=== PATIENT | female | born 1970 | race Caucasian/White ===

== ENCOUNTER 2018-01-24 16:31 | Emergency (ER) | payer BC, SELFPAY ==
[2018-01-24 16:43] VITALS: BP 119/107; PULSE 118; RESP 16; TEMP 37; O2SAT 99
[2018-01-24 16:58] LABS: Bilirubin Large (Negative); Blood Negative (Negative); Clarity Cloudy; Glucose Negative (Negative); Ketones 40 mg/dL (Negative); Leukocyte Esterase Trace (Negative); Nitrite Positive (Negative)
--- NOTE | 2018-01-24 17:00 | DI.RPTCT_ITS ---
SYMPTOM/DIAGNOSIS: PLEURITIC CHEST PAIN, LEFT FLANK PAIN CT ANGIOGRAPHY OF THE CHEST, ABDOMEN AND PELVIS: There is no evidence of pulmonary emboli or aortic dissection. No pleural or pericardial effusions are seen. The lungs appear clear. No evidence of pneumothorax. There is a small lesion in the anterior left lobe of the liver as well as an additional lesion seen inferiorly in the right lobe, likely representing hemangioma. The findings are unchanged from June 2016. The gallbladder, spleen, pancreas, adrenals and kidneys are unremarkable. There is no bowel dilatation or inflammatory change. The bladder is empty. The uterus and ovaries are unremarkable. IMPRESSION: No acute abnormality in the chest, abdomen or pelvis.
--- NOTE | 2018-01-24 17:00 | ED.GENADUL ---
Disposition Clinical Impression: Abdominal pain, Chest pain, Nausea and vomiting, Hypokalemia, Hypomagnesemia Disposition: HOME Condition: Stable Instructions: Acute Nausea and Vomiting (ED), Hypokalemia (ED), Hypomagnesemia (ED) Additional Instructions: follow up with your primary care provider within a week and have your electrolytes rechecked if you have severe worsening pain, difficulty breathing or persistent vomit despite using zofran return to the emergency department Prescriptions: Ondansetron ODT [Zofran Odt] 4 mg PO Q8H PRN PRN #30 tabef PRN Reason: Nausea / Vomiting Medical Decision Making - Lab Data Results reviewed for labs ordered during visit: Yes - EKG Data -: EKG Interpreted by Me EKG shows normal: sinus rhythm, axis, intervals, QRS complexes Rate: normal 01/24/18 18:50 t wave inversions in inferior leads 01/24/18 18:50 - Radiology Data Radiology results: report reviewed, image reviewed - Medical Decision Making Pt here with symptoms that could be from multiple etiologies, including gastroenteritis, gastritis, hepatitis, pancreatitis, kidney stone, pyelonephritis. Also could be PE given pleuritic component, wells moderate as it is =1 diagnosis, will obtain CTA chest and abdomen and lab work, and monitor pt feels much better, labs show low K and mag and also chloride which fits with her vomit. Awaiting imagign imaging shows no acute abnormalities. She is now tolerating PO so feel she can be managed as an outpatient with antiemetics, suspect gastroenteritis vs gastritis. She was advised to f/u with pcp within a week and have labs rechecked, return precautions given - Differential Diagnosis pancreatitis, kidney stone, pyelo, pe History of Present Illness - General Chief complaint: Nausea/Vomit/Diar Stated complaint: VOMIT,PAIN ON LEFT SIDE,DEHYDRATED Time Seen by Provider: 01/24/18 16:35 Source: patient Mode of arrival: ambulatory Limitations: no limitations - History of Present Illness Initial comments: 47 yo female with hx of htn, hld, smoker, who drinks about a bottle a wine a day per pt and last drink Wednesday night, comes in with n/v and intermittent left flank and chest pain since Wednesday morning. Denies fevers, pain with exertion, notes increased pain with deep breaths. Has mild luq pain on exam. No lower extremity edema. Denies any new meds, or drug use. MD Complaint: n/v Onset/Timin -: days(s) Location: abdomen Severity scale (1-10): 6 Quality: stabbing Consistency: intermittent Improves with: none Worsens with: other (deep breaths) Associated Symptoms: chest pain Treatments Prior to Arrival: none - Related Data Cyanocobalamin/Folic Acid [Vitamin U53-Lzjky Acid Tablet] 1 each PO DAILY 11/11/15 Amlodipine Besylate 5 mg PO DAILY #90 tab-cap 01/14/17 Atorvastatin [Lipitor] 40 mg PO DAILY #90 tab-cap 01/14/17 Pantoprazole Sodium 20 mg PO DAILY #90 tab-cap 01/14/17 Fluoxetine HCl 20 mg PO DAILY #90 tab-cap 02/26/17 Magnesium Chloride [Slow-Mag] 128 mg PO DAILY #180 tab-cap 03/04/17 Nicotine [Nicotine Patch] 1 each TD DAILY #30 patch 11/18/17 Ondansetron ODT [Zofran Odt] 4 mg PO Q8H PRN PRN #30 tabef 01/24/18 Allergies Allergy/AdvReac Type Severity Reaction Status Date / Time No Known Drug Allergies Allergy Unverified 01/24/18 17:24 Review of Systems Constitutional: denies: fever Respiratory: denies: shortness of breath Cardiovascular: chest pain Gastrointestinal: abdominal pain, nausea, vomiting Genitourinary: denies: dysuria Skin: denies: rash Neurological: denies: headache Comment: All other systems reviewed and negative Past Medical History - Past Medical History Medical history: hyperlipidemia, hypertension - Social History Smoking status: current everyday smoker Alcohol use: heavy Drug use: none General Exam - General Limitations: no limitations General appearance: alert, in no apparent distress - Head Head exam: Present: atraumatic - Eye Eye exam: Present: normal apperance - ENT ENT exam: Present: mucous membranes moist - Neck Neck exam: Present: normal inspection - Respiratory Respiratory exam: Absent: respiratory distress - Cardiovascular Cardiovascular Exam: Present: regular rate - GI/Abdominal GI/Abdominal exam: Present: soft, tenderness. Absent: distended, guarding, rebound, rigid - Extremities Exam Extremities exam: Present: normal inspection, full ROM. Absent: pedal edema - Neurological Exam Neurological exam: Present: alert, oriented X3 - Psychiatric Psychiatric exam: Present: normal affect - Skin Skin exam: Present: warm Course Vital Signs - 24 hr 01/24/18 16:43 Temperature 98.6 F Pulse 118 H Respiratory 16 Rate Blood Pressure 119/107 Pulse Oximetry 99
[2018-01-24] MEDS: Normal Saline Flush 10 ML SYR IVP (17:05)
[2018-01-24] MEDS: Normal Saline 1,000 ML 1000 ML IV (17:05)
[2018-01-24 17:09] LABS: C & S Indicated? No/Sq. Contamination; Epithelial Cells Many HPF (Negative)
[2018-01-24] MEDS: Ondansetron 4 MG/2 ML VIAL IVP (17:15)
[2018-01-24 17:17] LABS: Abs Immature Grans 0.03 k/cumm (0.0-0.09); Absolute Basophil Count 0.02 k/cumm (0.0-0.2); Absolute Lymphocyte Count 1.08 k/cumm (1.2-3.4); Absolute Monocyte Count 1.07 k/cumm (0.11-0.7); Absolute Neutrophil Count 8.13 k/cumm (1.2-6.7); Basophils % 0.2; HCT 49.5 % (36.0-46.0); HGB 17.1 g/dL (12.0-15.5); Immature Grans % 0.3; Lymphocytes % 10.5; Mean Corp. HGB Concentration 34.5 g/dL (32.0-36.0); Mean Corpuscular Hemoglobin 33.4 pg (27.0-33.0); Mean Corpuscular Volume 96.7 fL (80-95); Mean Platelet Volume 9.7 fL (8.0-11.0); Monocytes % 10.4; Neutrophils % 78.6; Platelet Count 288 x1000/uL (130-400); RBC 5.12 m/cumm (4.00-5.20); RBC Distribution Width 12.9 % (11.7-14.6); White Blood Cell Count 10.33 k/cumm (4.4-10.8)
[2018-01-24] MEDS: Ketorolac 30 MG/ML VIAL 15 MG IVP (17:17)
[2018-01-24 17:32] LABS: ALT 25 U/L (12-78); AST 31 U/L (15-37); Albumin 4.3 g/dL (3.4-5.0); Alkaline Phosphatase 75 U/L (46-116); BUN 15 mg/dL (7-18); Bilirubin, Total 1.4 mg/dL (0.2-1.0); Calcium 9.8 mg/dL (8.5-10.1); Chloride 89 mmol/L (98-107); Glucose 167 mg/dL (70-100); Magnesium 1.5 mg/dL (1.8-2.4); Sodium 129 mmol/L (136-145); Total Protein 9.1 g/dL (6.4-8.2)
[2018-01-24 17:35] LABS: Potassium 2.7 mmol/L (3.5-5.1)
[2018-01-24 17:36] LABS: Troponin I < 0.02 ng/mL (0.00-0.06)
[2018-01-24] MEDS: Omnipaque 350 MG/ML 100 ML BTL IJ (18:12)
[2018-01-24 18:27] LABS: Lipase 160 U/L (73-393)
--- NOTE | 2018-01-24 18:43 | DI.VRAD_ITS ---
EXAM: CT Chest With Intravenous Contrast CLINICAL HISTORY: 47 years old, female; Pain; Abdominal pain; Flank; Left; Pleuordynia; Patient HX: Pleuritic chest pain, left flank pain TECHNIQUE: Axial computed tomography images of the chest with intravenous contrast. Coronal and sagittal reformatted images were created and reviewed. COMPARISON: No relevant prior studies available. FINDINGS: No evidence of pulmonary embolism. Normal thoracic aorta without aneurysm or dissection. No airspace consolidation, pleural effusion or pneumothorax. No fracture. IMPRESSION: No acute findings. EXAM: CT Angiography Abdomen and Pelvis With Intravenous Contrast CLINICAL HISTORY: 47 years old, female; Pain; Abdominal pain; Flank; Left; Pleuordynia; Patient HX: Pleuritic chest pain, left flank pain TECHNIQUE: Axial computed tomographic angiography images of the abdomen and pelvis with intravenous contrast. MIP reconstructed images were created and reviewed. Coronal and sagittal reformatted images were created and reviewed. COMPARISON: US - PELVIS TRANSVAG 2011-02-19 16:46 FINDINGS: There is focal fatty infiltration of the liver adjacent to the falciform ligament. There is a small probable hemangioma in right lobe of the liver posteriorly. The gallbladder is unremarkable. No biliary ductal dilatation. No hydronephrosis. Unremarkable adrenal glands, pancreas and spleen. Normal abdominal aorta. Nonvisualized appendix. No evidence of appendicitis. No evidence of bowel obstruction. There is colonic diverticulosis without diverticulitis. There is a small umbilical hernia containing fat. The wall of the urinary bladder appears thickened although the bladder is decompressed. The reproductive structures are unremarkable as visualized. No free fluid or free air. No fracture. IMPRESSION: No acute findings. Dictated and Authenticated by: Nabil Bah MD. Ordering:ZION ALVARENGA MD
[2018-01-24] MEDS: Potassium Chloride 20 MEQ TABCR 40 MEQ PO (18:47)
[2018-01-24] MEDS: Ondansetron 4 MG/2 ML VIAL (18:59)
[2018-01-24 19:00] VITALS: BP 152/110; PULSE 86; RESP 16; TEMP 36.8; O2SAT 99
[2018-01-24 19:10] VITALS: BP 152/110; PULSE 86; RESP 16; TEMP 36.8; O2SAT 99
[2018-01-24] MEDS: Ondansetron O.D.T. 4 MG TABEF PO (19:17)
== END 2018-01-24 19:25 | disposition home or self-care (01) ==
PROVIDERS: Emergency Provider Emergency Medicine; PCP Nurse Practitioner Family
DX: R07.9 Chest pain, unspecified (principal); R10.12 Left upper quadrant pain; R11.2 Nausea with vomiting, unspecified; E87.6 Hypokalemia; E83.42 Hypomagnesemia; I10 Essential (primary) hypertension
CPT/HCPCS: 36415; 71275; 74177; 80053; 83690; 93005; 96361; 96374; 96375; 96376; 99285; 81003; 81015; 83735; 84484; 85025; 93010; J1885; J2405; J3490

== ENCOUNTER → 2018-01-28 14:08 | Outpatient (CLI) | payer BC, SELFPAY ==
[2018-01-28 15:16] LABS: ALT 20 U/L (12-78); AST 20 U/L (15-37); Albumin 3.5 g/dL (3.4-5.0); Alkaline Phosphatase 61 U/L (46-116); Anion Gap 8.2 mmol/L (3-11); BUN 7 mg/dL (7-18); Bilirubin, Total 0.5 mg/dL (0.2-1.0); CO2 29.8 mmol/L (21.0-32.0); CREATININE 0.64 mg/dL (0.55-1.02); Calcium 9.2 mg/dL (8.5-10.1); Chloride 98 mmol/L (98-107); Glucose 101 mg/dL (70-100); Potassium 3.2 mmol/L (3.5-5.1); Sodium 136 mmol/L (136-145); Total Protein 6.8 g/dL (6.4-8.2)
== END ==
PROVIDERS: PCP Nurse Practitioner Family; Visit Provider Nurse Practitioner Family
DX: E87.6 Hypokalemia (principal); E83.42 Hypomagnesemia
CPT/HCPCS: 36415; 80053; 83735

== ENCOUNTER 2018-02-03 14:42 | Outpatient (CLI) | payer BC, SELFPAY ==
[2018-02-03 15:59] LABS: Potassium 4.5 mmol/L (3.5-5.1)
== END 2018-02-03 14:43 ==
PROVIDERS: PCP Nurse Practitioner Family; Visit Provider Nurse Practitioner Family
DX: E83.42 Hypomagnesemia (principal); E87.6 Hypokalemia
CPT/HCPCS: 36415; 83735; 84132

== ENCOUNTER 2019-04-13 16:07 | Outpatient (REF) | payer BC, SELFPAY ==
--- NOTE | 2019-04-13 | PAPFT_PTH ---
PATIENT: Lashanda Sams LOC: [facility] U#:[id number] AGE/SX: 48/F ROOM: RE04/13/[address]: LILIBETH Perez : 1970 BED: DIS: 04/13/2019 SPEC #: [id number] RECD: 04/13/19 17:58 STATUS: VINICIUS REShannon #: [id number] MERVIN: 04/13/19 00:[address]: Jocelin Muir DEPT: [facility] Cytology RECD BY: Malaika Pierce Tissues: 1 - CX/ENDOCX FOR PAP SMEARS Procedures: PAP THIN PREP/UVM Screening HPV DNA PROBE Comments: [id number]
== END 2019-04-13 16:27 ==
LOC: LBN 16:07
PROVIDERS: Visit Provider Nurse Practitioner Family
DX: Z12.4 Encounter for screening for malignant neoplasm of cervix (principal); Z11.51 Encounter for screening for human papillomavirus (HPV)
CPT/HCPCS: 88142; 87624

== ENCOUNTER 2019-06-12 17:07 | Emergency (ER) | payer BC, SELFPAY ==
[2019-06-12 17:18] VITALS: BP 119/80; PULSE 91; RESP 16; TEMP 36.4; O2SAT 95
--- NOTE | 2019-06-12 18:09 | DI.RAD_ITS ---
EXAM: XR FOOT RT COMPLETE INDICATION: pain, fall. COMPARISON: No exams were available for comparison TECHNIQUE: 2D digital imaging was performed. FINDINGS: A nondisplaced fracture of the distal fibula is again noted. No additional fractures are seen in the foot. A plantar calcaneal spur is noted. IMPRESSION: Distal fibular fracture. No additional fractures are identified in the foot.
--- NOTE | 2019-06-12 18:09 | W.ED.GENAD ---
Discharge Plan Disposition Patient Disposition: HOME Condition: Stable Discharge Details Chief Complaint: Orthopedic Clinical Impression: Fracture, fibula, proximal, Fracture of distal end of right fibula Primary Care Provider: Radha Ramirez ED Provider: Chelo Damon Home Meds and New Rx's Prescriptions: No Action valerian root 100 mg capsule 100 mg PO TID-QID PRNRF: 0 vitamin C22-iyaml acid 1 EACH tablet 1 ea PO DAILY RF: 0 nicotine 1 EACH patch 24 hour 1 ea Transdermal DAILY Qty: 30 RF: 2 magnesium chloride [Mag 64] 64 MG tablet,delayed release (DR/EC) 192 mg PO DAILY Qty: 270 RF: 3 amlodipine 5 mg tablet 5 mg PO DAILY Qty: 90 RF: 3 pantoprazole 20 mg tablet,delayed release (DR/EC) 20 mg PO DAILY Qty: 90 RF: 3 atorvastatin [Lipitor] 40 mg tablet 40 mg PO DAILY Qty: 90 RF: 3 fluoxetine 20 mg tablet 20 mg PO DAILY Qty: 20 RF: 0 Discharge Instructions Instructions: Leg Fracture (ED) Additional Instructions: Rest. Activities as tolerated. Elevate injury to prevent swelling. Fracture boot and crutches as discussed. Weightbearing as tolerated. Ice to the area of discomfort for 15 min. 3-5 times daily. Motrin every 8 hours with food or Tylenol every 6 hours for soreness if needed over the counter for comfort. Followup with orthopedic doctor as discussed for reevaluation Return for any worsening or concerns sooner if needed. Stand Alone Forms: Work Release Referrals: Albino Guzmán MD [ [facility] STAFF PHYSICIAN] - Medical Decision Making Very pleasant 48-year-old patient presents after injuring her right ankle 2 days ago. Has had limping gait and persistent pain since that time. On exam patient does have proximal gordon tenderness as well as primarily lateral malleolus tenderness of the right ankle. Achilles tendon is intact and nontender. Mild foot pain with palpation. Will x-ray the tib-fib as well as the ankle and foot. Patient did take ibuprofen prior to arrival. Patient is comfortable at this time. X-rays reveal both a proximal and distal metaphysis nondisplaced fractures. Spoke with Dr. Guzmán, orthopedic surgeon he recommended equalizer walking boot and crutches with weightbearing as tolerated and will follow-up in the office. HPI General Date/Time Provider Initiated Documentation: 06/12/19 17:42. HPI Narrative: This is a 48-year-old patient who presents for a ankle injury. Patient reports she twisted her ankle after slipping on ice 2 days ago. Patient reports persistent ankle pain since that time. Patient does report swelling and bruising to the right lateral ankle. Patient is complaining of gordon pain, as well as ankle pain. Patient reports mild foot pain. No numbness, tingling or weakness. Limping gait. Denies any other sites of pain or concerns. Denies striking head neck or back. No other extremity injury reported. History of multiple ankle sprains in the past. Related Data Home Medications Medication Instructions Recorded Confirmed vitamin H17-temlo acid 1 ea PO DAILY 11/11/15 06/12/19 nicotine 1 ea TRANSDERMAL DAILY #30 patch 11/18/17 06/12/19 magnesium chloride [Slow-Mag] 192 mg PO DAILY #270 tab-cap 02/04/18 06/12/19 amlodipine 5 mg tablet 5 mg PO DAILY #90 tab-cap 03/30/18 06/12/19 pantoprazole 20 mg tablet,delayed 20 mg PO DAILY #90 tab-cap 04/14/18 06/12/19 release valerian root 100 mg capsule 100 mg PO TID-QID PRN 04/13/19 06/12/19 atorvastatin 40 mg tablet 40 mg PO DAILY #90 tab-cap 05/15/19 06/12/19 fluoxetine 20 mg tablet 20 mg PO DAILY #20 tab 05/29/19 06/12/19 Previous Rx's Medication Instructions Recorded nicotine 1 ea TRANSDERMAL DAILY #30 patch 11/18/17 magnesium chloride [Slow-Mag] 192 mg PO DAILY #270 tab-cap 02/04/18 amlodipine 5 mg tablet 5 mg PO DAILY #90 tab-cap 03/30/18 pantoprazole 20 mg tablet,delayed 20 mg PO DAILY #90 tab-cap 04/14/18 release atorvastatin 40 mg tablet 40 mg PO DAILY #90 tab-cap 05/15/19 fluoxetine 20 mg tablet 20 mg PO DAILY #20 tab 05/29/19 Allergies Allergy/AdvReac Type Severity Reaction Status Date / Time No Known Drug Allergies Allergy Verified 06/12/19 17:21 General Stated Complaint: Orthopedic TRISH: 4 Review of Systems All systems reviewed & are unremarkable except as noted in HPI and below Constitutional Constitutional: Denies headache(s) ENT Ears, Nose, Mouth, and Throat: Denies headache(s) and Denies neck pain Musculoskeletal Musculoskeletal: Reports abnormal gait (Limping), Denies back pain, Denies deformity, Reports joint swelling, Denies limited range of motion, Denies neck pain, Denies numbness and Denies stiffness Integumentary/Breasts Skin/Breast: Denies wounds Neurologic Neurologic: Reports abnormal gait (Limping), Denies headache(s) and Denies numbness [facility] Medical History Acute pancreatitis (Resolved 02/15/15) Alcohol use disorder (Chronic) [place] 07/2009 Allergic rhinitis, unspecified (Chronic 11/18/17) Anxiety and depression (Chronic 02/15/15) Cervical high risk human papillomavirus (HPV) DNA test positive (Resolved 01/26/13) Essential hypertension (Chronic 03/19/15) Gastroesophageal reflux disease with esophagitis (Chronic 02/06/13) Hyperesthesia (Chronic 03/19/15) L anterior rib cage area Hyperlipidemia, unspecified (Chronic 03/19/15) Hypomagnesemia (Chronic 08/26/17) Menorrhagia S/p EM ablation 2011 Pancreatitis (~2009) Tobacco use disorder (Chronic 02/15/15) Social History Smoking/Tobacco Use Status: Current every day Tobacco Type: cigarettes Alcohol Intake: current Alcohol Intake frequency: 0-2 drinks per day Drug use: Never Substance use type: does not use Caregiver/Support person: No Household members: spouse Communication Needs: None 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 Well hydrated. Alert and oriented. MUSCULOSKELETAL: Right leg: No hip pain with palpation, thigh pain with palpation. No focal knee pain with palpation. Proximal tib-fib tenderness with palpation both medially and laterally. Mild calf pain with palpation. No significant Achilles tenderness. Achilles tendon intact. Mild medial malleolus tenderness. Moderate lateral malleolus tenderness. Mild dorsal foot with palpation. Pulses intact. Sensation intact. Flexion-extension intact of the foot. SKIN: Normal. Dry. No rashes. NEURO: Alert and awake. Speech clear. PSYCH: Normal affect. Cooperative. Course Vital Signs Vital signs: Vital Signs Temperature 36.4 C L 06/12/19 17:18 Pulse 91 H 06/12/19 17:18 Respiratory Rate 16 06/12/19 17:18 Blood Pressure 119/80 06/12/19 17:18 Pulse Oximetry 95 06/12/19 17:18 Temperature 36.4 C L 06/12/19 17:18 Temperature Source Skin 06/12/19 17:18 Pulse 91 H 06/12/19 17:18 Respiratory Rate 16 06/12/19 17:18 Respiratory Effort Non-Labored 06/12/19 17:18 Blood Pressure 119/80 06/12/19 17:18 Pulse Oximetry 95 06/12/19 17:18 Oxygen Delivery Method Room Air 06/12/19 17:18 Oxygen Flow Rate 0 06/12/19 17:18 Pain Level 7 06/12/19 17:36
--- NOTE | 2019-06-12 18:10 | DI.RAD_ITS ---
EXAM: XR ANKLE RT COMPLETE INDICATION: pain, fall. COMPARISON: LEFT ANKLE 2 VIEW from 06/19/2014 TECHNIQUE: 2D digital imaging was performed. FINDINGS: There is an oblique fracture extending through the distal fibula obliquely to the level of the ankle mortise. No additional fractures are seen. There is no ankle mortise widening. A heel spur is incid entally noted. IMPRESSION: Nondisplaced distal fibular fracture.
--- NOTE | 2019-06-12 18:12 | DI.RAD_ITS ---
EXAM: XR TIB/FIB RT INDICATION: pain, fall. COMPARISON: No exams were available for comparison TECHNIQUE: 2D digital imaging was performed. FINDINGS: There is a nondisplaced fracture of the proximal metaphyseal region of the fibula. An additional obli que fracture is seen at the lateral malleolus. The tibia appears intact. There is no visible ankle mortise widening. IMPRESSION: Nondisplaced fractures of the proximal and distal fibula.
--- NOTE | 2019-06-12 18:43 | DI.VRAD_ITS ---
PROCEDURE INFORMATION: Exam: XR Right Ankle Exam date and time: 06/12/2019 6:11 PM Age: 48 years old Clinical indication: Pain; Ankle; Right; Patient HX: Fell on ice TECHNIQUE: Imaging protocol: XR Right ankle. Views: 3 or more views. COMPARISON: No relevant prior studies available. FINDINGS: Bones/joints: Acute nondisplaced fracture of the distal metaphysis of the fibula. Minimal degenerative changes within the ankle joint. Ankle joint effusion. Small plantar calcaneal spur. Soft tissues: Swelling of the lateral ankle soft tissues. IMPRESSION: Acute fracture of the distal fibula. Dictated and Authenticated by: Pradip Sanchez MD. Ordering:RICARDO Whitney MD
--- NOTE | 2019-06-12 18:44 | DI.VRAD_ITS ---
PROCEDURE INFORMATION: Exam: XR Right Foot Complete Exam date and time: 06/12/2019 6:11 PM Age: 48 years old Clinical indication: Pain; Foot; Right; Patient HX: Fell on ice TECHNIQUE: Imaging protocol: XR Right foot. Views: 3 or more views. COMPARISON: No relevant prior studies available. FINDINGS: Bones/joints: Undisplaced fracture of the distal fibula. Small plantar calcaneal spur. No other fracture. Normal bone density. Soft tissues: Normal. IMPRESSION: Nondisplaced fracture of the distal fibula. Dictated and Authenticated by: Pradip Sanchez MD. Ordering:RICARDO Whitney MD
--- NOTE | 2019-06-12 18:45 | DI.VRAD_ITS ---
PROCEDURE INFORMATION: Exam: XR Right Tibia and Fibula Exam date and time: 06/12/2019 6:15 PM Age: 48 years old Clinical indication: Pain; Ankle and lower leg; Right; Patient HX: Fell on ice TECHNIQUE: Imaging protocol: XR Right tibia and fibula. Views: 2 views. COMPARISON: No relevant prior studies available. FINDINGS: Bones/joints: Nondisplaced fracture of the proximal metaphysis of the fibula. Nondisplaced fracture of the distal metaphysis of the fibula. The knee, proximal tibiofibular and ankle joints are intact. Soft tissues: Normal. IMPRESSION: 1. Nondisplaced fracture of the fibula proximal metaphysis. 2. Nondisplaced fracture of the fibula distal metaphysis. Dictated and Authenticated by: Pradip Sanchez MD. Ordering:RICARDO Whitney MD
[2019-06-12 19:41] VITALS: BP 119/80; PULSE 91; RESP 16; TEMP 36.4; O2SAT 95
== END 2019-06-12 19:35 | disposition home or self-care (01) ==
PROVIDERS: Emergency Provider Physician Assistant; PCP Nurse Practitioner Family
DX: S89.301A Unspecified physeal fracture of lower end of right fibula, initial encounter for closed fracture (principal); S89.201A Unspecified physeal fracture of upper end of right fibula, initial encounter for closed fracture; W00.0XXA Fall on same level due to ice and snow, initial encounter; I10 Essential (primary) hypertension
CPT/HCPCS: 29505; 99283; 73590; 73610; 73630; L4361

== ENCOUNTER 2019-06-27 08:27 | Outpatient (CLI) | payer BC, SELFPAY ==
--- NOTE | 2019-06-27 08:34 | DI.RAD_ITS ---
EXAM: XR TIB/FIB RT CLINICAL HISTORY: f/u of right proximal fibular fracture TECHNIQUE: COMPARISON: XR TIB/FIB RT from 06/12/2019 XR ANKLE RT COMPLETE from 06/12/2019 XR ANKLE RT COMPLETE from 06/27/2019 FINDINGS: Two views of the leg and three views of the ankle were obtained. There are minimally displaced fract ures of the proximal fibula and the distal fibula. No change in alignment comparison with previous f ilms of June 12. Ankle mortise remains well maintained. IMPRESSION:
== END 2019-06-27 08:47 ==
PROVIDERS: PCP Nurse Practitioner Family; Visit Provider Physician Assistant
DX: S82.831D Other fracture of upper and lower end of right fibula, subsequent encounter for closed fracture with routine healing
CPT/HCPCS: 73590; 73610

== ENCOUNTER 2019-07-26 15:20 | Outpatient (CLI) | payer BC, SELFPAY ==
--- NOTE | 2019-07-26 14:45 | DI.RAD_ITS ---
EXAM: XR ANKLE RT COMPLETE CLINICAL HISTORY: FOLLOW UP. TECHNIQUE: 2D digital imaging was performed. COMPARISON: XR ANKLE RT COMPLETE from 06/27/2019 FINDINGS: BONES: There is a healing nondisplaced fracture of the distal right fibula. No change in alignment o f the fracture is noted. No bony destructive lesion is seen. JOINTS: The ankle mortise is normally aligned. SOFT TISSUE: Normal. IMPRESSION: Healing distal right fibular fracture.
--- NOTE | 2019-07-26 14:45 | DI.RAD_ITS ---
EXAM: XR TIB/FIB RT CLINICAL HISTORY: FOLLOW UP. TECHNIQUE: 2D digital imaging was performed. COMPARISON: XR TIB/FIB RT from 06/27/2019 FINDINGS: BONES: There has been no change in alignment of the healing nondisplaced fractures involving the prox imal and distal right fibula. No bony destructive lesion is seen. Visualized portion of knee and ank le joints are unremarkable. SOFT TISSUE: Normal. IMPRESSION: Stable right fibular fractures.
== END 2019-07-26 15:40 ==
PROVIDERS: PCP Nurse Practitioner Family; Visit Provider Student in an Organized Health Care Education/Training Program
DX: S82.831D Other fracture of upper and lower end of right fibula, subsequent encounter for closed fracture with routine healing (principal)
CPT/HCPCS: 73590; 73610

== ENCOUNTER 2020-02-23 02:47 | Outpatient (CLI) | payer BC, SELFPAY ==
[2020-02-23 15:58] LABS: Abs Immature Grans 0.02 10^3/uL (0.0-0.06); Absolute Basophil Count 0.08 10^3/uL (0.0-0.2); Absolute Eosinophil Count 0.23 10^3/uL (0.0-0.7); Absolute Lymphocyte Count 1.72 10^3/uL (1.2-3.4); Absolute Monocyte Count 0.95 10^3/uL (0.1-0.8); Absolute Neutrophil Count 5.87 10^3/uL (1.2-6.7); Basophils % 0.9; Eosinophils % 2.6; HCT 40.1 % (36.0-46.0); HGB 13.1 g/dL (11.2-15.7); Immature Grans % 0.2; Lymphocytes % 19.4; MCH 34.1 pg (27.0-33.0); MCHC 32.7 % (32.0-36.0); MCV 104.4 fL (80-95); MPV 9.4 fL (8.0-11.0); Monocytes % 10.7; Neutrophils % 66.2; Nucleated RBC 0 %; Platelet Count 294 10^3/uL (130-400); RBC 3.84 10^6/uL (3.93-5.22); RDW 12.4 % (11.7-14.6); RDW-SD 47.8 fL; WBC 8.87 10^3/uL (4.4-10.8)
[2020-02-23 16:02] LABS: Hemoglobin A1C 5.3 % (<5.7)
[2020-02-23 16:59] LABS: ALT 26 U/L (14-59); AST 27 U/L (15-37); Albumin 3.5 g/dL (3.4-5.0); Alkaline Phosphatase 70 U/L (46-116); Anion Gap 8.9 mmol/L (3-11); BUN 10 mg/dL (7-18); Bilirubin, Total 0.5 mg/dL (0.2-1.0); CO2 30.1 mmol/L (21.0-32.0); CREATININE 0.67 mg/dL (0.55-1.02); Calcium 8.9 mg/dL (8.5-10.1); Chloride 99 mmol/L (98-107); Glucose 93 mg/dL (74-106); Potassium 3.8 mmol/L (3.5-5.1); Sodium 138 mmol/L (136-145); Total Protein 6.7 g/dL (6.4-8.2)
[2020-02-26 12:01] LABS: Hepatitis C Ab w Rflx HCV PCR Negative (Negative)
[2020-02-26 13:03] LABS: HIV-1/2 Ag & Ab Screen Negative (Negative)
== END 2020-02-23 03:07 ==
PROVIDERS: PCP Nurse Practitioner Family; Visit Provider Nurse Practitioner Family
DX: I10 Essential (primary) hypertension (principal); R73.01 Impaired fasting glucose; E83.42 Hypomagnesemia; Z11.4 Encounter for screening for human immunodeficiency virus [HIV]; Z11.59 Encounter for screening for other viral diseases; Z86.2 Personal history of diseases of the blood and blood-forming organs and certain disorders involving the immune mechanism
CPT/HCPCS: 36415; 80053; 86803; 87389; 83036; 83735; 85025

== ENCOUNTER 2020-03-08 04:33 | Outpatient (CLI) | payer BC, SELFPAY ==
[2020-03-08 17:33] LABS: Folate 7.1 ng/mL (8.6-20.0); TSH (W/Ref FT4) 1.29 uIU/mL (0.36-3.74); Vitamin B12 261 pg/mL (193-986)
[2020-03-11 09:44] LABS: Homocysteine 19.9 umol/L (5.0-13.9)
[2020-03-14 08:43] LABS: Methylmalonic Acid 0.21 nmol/mL (<=0.40)
== END 2020-03-08 04:53 ==
PROVIDERS: PCP Nurse Practitioner Family; Visit Provider Nurse Practitioner Family
DX: D75.89 Other specified diseases of blood and blood-forming organs (principal)
CPT/HCPCS: 36415; 80186; 83090; 82607; 82746; 84443

== ENCOUNTER 2020-05-21 02:32 | Outpatient (CLI) | payer BC, SELFPAY ==
[2020-05-23 21:29] LABS: COVID-19 RT-PCR Result NEGATIVE (Negative)
== END 2020-05-21 02:52 ==
PROVIDERS: PCP Nurse Practitioner Family; Visit Provider Surgery
DX: Z11.59 Encounter for screening for other viral diseases (principal); Z01.818 Encounter for other preprocedural examination
CPT/HCPCS: U0003

== ENCOUNTER 2020-05-24 10:00 | Day surgery (SDC) | payer BC, SELFPAY ==
[2020-05-24 10:38] VITALS: BP 126/98; PULSE 92; RESP 16; TEMP 36.5; O2SAT 94
--- NOTE | 2020-05-24 10:38 | W.PM.DSUDISC ---
Discharge Plan Disposition Patient Disposition: HOME Condition: Good Discharge Details Reason For Visit: Colonoscopy Attending Provider: Nadege Bojorquez Primary Care Provider: Radha Ramirez Home Meds and New Rx's Prescriptions: Continued cholecalciferol (vitamin D3) 5,000 units PO DAILY RF: 0 ferrous sulfate 1 tab PO DAILY RF: 0 turmeric 1 tab PO DAILY RF: 0 vitamin I04-dyakp acid 1 EACH tablet 1 ea PO DAILY RF: 0 magnesium chloride [Mag 64] 64 mg tablet,delayed release (DR/EC) 192 mg PO DAILY Qty: 270 RF: 0 cyanocobalamin (vitamin B-12) 1,000 mcg tablet 1,000 mcg PO DAILY Qty: 90 RF: 3 folic acid 1 mg tablet 1 mg PO DAILY Qty: 90 RF: 3 pantoprazole 20 mg tablet,delayed release (DR/EC) 20 mg PO DAILY Qty: 30 RF: 3 atorvastatin [Lipitor] 40 mg tablet 40 mg PO HS RF: 0 amlodipine 5 mg tablet 5 mg PO HS RF: 0 fluoxetine 20 mg capsule 20 mg PO HS RF: 0 Discontinued polyethylene glycol 3350 17 gram/dose powder 238 g PO ONCE Qty: 238 RF: 0 bisacodyl [Dulcolax (bisacodyl)] 5 mg tablet,delayed release (DR/EC) 5 mg PO ONCE Qty: 4 RF: 0 Discharge Instructions Additional Instructions: Findings: One tiny polyp was removed. My office will contact you with biopsy results. Follow up: If the biopsy shows an adenomatous polyp, plan for a colonoscopy in 5 years. Please call if you develop: fevers >101.5 Nausea or Vomiting Abdominal pain that is not transient DAY SURGERY UNIT POST COLONOSCOPY INSTRUCTIONS 1. Because there will be medication in your system for the next 24 hours, you may feel a little sleepy. Your coordination will be affected. Therefore: a. Do not drive or operate dangerous equipment for 24 hours. b. Do not drink alcohol beverages for 24 hours (not even beer). c. Plan to go home and rest for the day. 2. Generally there are no restrictions on your activity after a day or so has gone by, but you may feel a bit fatigued for a few days. 3 After you arrive home you may have a light meal and return to a normal diet as you can tolerate it without feeling sick to your stomach. 4. After surgery, you may feel pain or discomfort. This should be only transient, but if it persists please contact your doctor. 5. If there are any questions regarding the findings of your procedure, please feel free to contact your doctor. 6. If you are unable to contact your doctor with a problem, contact the hospital at [phone]. 7. Continue all your regular medications unless directed otherwise. I understand the above instructions and have no questions. Signature of Patient or Responsible Adult Escort Date/Time Name of Responsible Adult Escort Signature of Nurse Date/Time Activity:: Activity as Tolerated Diet:: As Tolerated Discharge Orders Discharge Orders: Discharge Order (Routine); Ordered 05/24/20 Ordered By: Nadege Bojorquez DS: Diagnosis Discharge Diagnosis (1) Rectal polyp: Status: Acute
--- NOTE | 2020-05-24 10:39 | W.COLOREPORT ---
Date of service: 05/24/20 Time of Service: 12:10 Colonoscopy Report Date of procedure: 05/24/20 Pre-op diagnosis general: Screening Post-op diagnosis procedure note: other (Rectal polyp) Procedure: Colonoscopy with cold forceps polypectomy Surgeon: Nadege Bojorquez Anesthesia proc note operative: MAC Indications: This 49 year old woman presents for her first screening colonoscopy. No symptoms or FH colon cancer. Procedure Description: The patient was placed in the left Last position. Propofol was titrated to sedation. Digital rectal examination revealed no abnormalities. The scope was advanced to the cecum without difficulty. The ileocecal valve and appendiceal orifice were clearly identified. The prep was good. The scope was slowly withdrawn over the course of greater than 6 minutes with no abnormalities seen in the ascending, transverse, descending or sigmoid colon. A diminuitive polyp was removed with the cold forceps from the rectum. It has the appearance of a hyperplastic polyp. The rectum was otherwise normal including on retroflexed view. The patient tolerated the procedure well and was stable to recovery. If the biopsy shows an adenomatous polyp, colonoscopy in 5 years is indicated.
[2020-05-24] MEDS: Lactated Ringers 1,000 ML 80 ML IV (10:55)
--- NOTE | 2020-05-24 11:58 | BOWEL_PTH ---
PATIENT: Lashanda Sams LOC: [facility] U#:[id number] AGE/SX: 49/F ROOM: RE05/24/[address]: Nadege Bojorquez MD : 1970 BED: DIS: 05/24/2020 SPEC #: [id number] RECD: 05/24/20 13:04 STATUS: VINICIUS REQ #: [id number] MERVIN: 05/24/20 11:[address]: Nadege Bojorquez DEPT: Surgical Specimen RECD BY: Malaika Pierce ENTERED: 05/24/20 13:04 SP TYPE: Bowel OTHR DR: Radha Ramirez APRN Tissues: 1 - BIOPSY BOWEL Procedures: GROSS AND MICRO LEVEL 4 Comments: [id number]
[2020-05-24 12:34] VITALS: BP 130/51; PULSE 72; RESP 18; TEMP 36.4; O2SAT 98
== END 2020-05-24 13:00 | disposition home or self-care (01) ==
PROVIDERS: PCP Nurse Practitioner Family; Visit Provider Surgery
PROC: 0DJD8ZZ Inspection of Lower Intestinal Tract, Via Natural or Artificial Opening Endoscopic (ICD-10-PCS; CPT 45378; principal; 2020-05-24 11:30)
DX: Z12.11 Encounter for screening for malignant neoplasm of colon (principal); K62.1 Rectal polyp; I10 Essential (primary) hypertension; F10.10 Alcohol abuse, uncomplicated; K21.9 Gastro-esophageal reflux disease without esophagitis; F12.10 Cannabis abuse, uncomplicated
CPT/HCPCS: 45380; 88305; J2001

== ENCOUNTER 2020-09-12 01:52 | Outpatient (CLI) | payer BC, SELFPAY ==
[2020-09-13 16:18] LABS: COVID-19 RT-PCR UVMMC Result Negative (Negative)
== END 2020-09-12 01:53 | disposition home or self-care (01) ==
LOC: LBO 01:52
PROVIDERS: PCP Nurse Practitioner Family; Visit Provider Nurse Practitioner Family
DX: Z20.822 Contact with and (suspected) exposure to COVID-19 (principal)
CPT/HCPCS: U0003

== ENCOUNTER 2020-10-01 02:15 | Outpatient (CLI) | payer BC, SELFPAY ==
--- NOTE | 2020-10-01 13:35 | DI.MAMMO_ITS ---
EXAM: MG MAMMO SCREENING CLINICAL HISTORY: SCREENING, Z12.39 TECHNIQUE: Bilateral full field digital CC and MLO mammographic images were obtained with 3D tomosyn thesis and utilizing computer aided detection (CAD). COMPARISON: Available for comparison. FINDINGS: Masses/Architectural Distortion: None seen. Microcalcifications: No suspicious pleomorphic-type are seen. Skin Thickening/Nipple Retraction: None. IMPRESSION: 1. No significant interval change with no specific features of malignancy noted. 2. Unless there is more urgent need, screening mammography is recommended, as per [employer] guidelines. BI-RADS Category 1 - Negative Breast Density - Category C - Heterogeneously dense Breast density category C or D implies that the patient has dense breast tissue. Dense breast tissue is very common and is not abnormal but dense breast tissue can make it harder to find cancer on a ma mmogram. Also, dense breast tissue may increase their breast cancer risk. This information about the result of the mammogram report was provided to the patient to raise their awareness. Use this report when you speak with the patient about their risks for breast cancer, which includes their family hist ory. At that time, you may recommend for more screening tests (Ultrasound or MRI) as they might be us eful based on their risk. A negative radiographic report should not delay biopsy if a dominant or clinically suspicious mass is present. Up to ten percent of cancers are not identified on mammography. A negative report may reinforce clinical impression. Adenosis and dense breasts may obscure an underlying neoplasm. False positive reports average 6 to 10%. Patient will receive a letter notifying them of these results.
== END 2020-10-01 02:35 ==
PROVIDERS: PCP Nurse Practitioner Family; Visit Provider Nurse Practitioner Family
DX: Z12.31 Encounter for screening mammogram for malignant neoplasm of breast (principal)
CPT/HCPCS: 77063; 77067

== ENCOUNTER 2020-10-04 02:12 | Outpatient (CLI) | payer BC, SELFPAY ==
[2020-10-04 15:27] LABS: Abs Immature Grans 0.05 10^3/uL (0.0-0.06); Absolute Eosinophil Count 0.23 10^3/uL (0.0-0.7); Absolute Lymphocyte Count 2.21 10^3/uL (1.2-3.4); Absolute Monocyte Count 0.75 10^3/uL (0.1-0.8); Absolute Neutrophil Count 5.34 10^3/uL (1.2-6.7); Basophils % 1.2; Eosinophils % 2.6; HCT 37.6 % (36.0-46.0); HGB 12.5 g/dL (11.2-15.7); Immature Grans % 0.6; Lymphocytes % 25.5; MCHC 33.2 % (32.0-36.0); MCV 99.2 fL (80-95); MPV 9.2 fL (8.0-11.0); Monocytes % 8.6; Neutrophils % 61.5; Nucleated RBC 0 %; Platelet Count 332 10^3/uL (130-400); RBC 3.79 10^6/uL (3.93-5.22); RDW 12.4 % (11.7-14.6); RDW-SD 45.2 fL; WBC 8.68 10^3/uL (4.4-10.8)
[2020-10-04 17:00] LABS: ALT 19 U/L (14-59); AST 20 U/L (15-37); Albumin 3.5 g/dL (3.4-5.0); Alkaline Phosphatase 61 U/L (46-116); Anion Gap 8.1 mmol/L (3-11); BUN 12 mg/dL (7-18); Bilirubin, Total 0.2 mg/dL (0.2-1.0); CO2 31.9 mmol/L (21.0-32.0); CREATININE 0.6 mg/dL (0.55-1.02); Calcium 9.1 mg/dL (8.5-10.1); Calculated LDL 100 mg/dL (<100); Chloride 102 mmol/L (98-107); Cholesterol 217 mg/dL (<200); Folate 19.8 ng/mL (8.6-20.0); Glucose 114 mg/dL (74-106); HDL Cholesterol 81 mg/dL (40-60); Potassium 3.9 mmol/L (3.5-5.1); Sodium 142 mmol/L (136-145); Total Protein 6.9 g/dL (6.4-8.2); Triglyceride 183 mg/dL (<150); Vitamin B12 345 pg/mL (193-986)
[2020-10-07 10:11] LABS: Homocysteine 11.3 umol/L (5.0-13.9)
[2020-10-08 09:44] LABS: Methylmalonic Acid 0.19 nmol/mL (<=0.40)
== END 2020-10-04 02:13 | disposition home or self-care (01) ==
LOC: LBO 02:12
PROVIDERS: PCP Nurse Practitioner Family; Visit Provider Nurse Practitioner Family
DX: E78.5 Hyperlipidemia, unspecified (principal); I10 Essential (primary) hypertension; F10.10 Alcohol abuse, uncomplicated; Z13.1 Encounter for screening for diabetes mellitus; E53.8 Deficiency of other specified B group vitamins; D75.89 Other specified diseases of blood and blood-forming organs
CPT/HCPCS: 36415; 80053; 80061; 80186; 83090; 82607; 82746; 85025

== ENCOUNTER 2021-02-24 15:59 | Outpatient (REF) | payer BC, SELFPAY ==
[2021-02-24 15:38] LABS: Abs Immature Grans 0.05 10^3/uL (0.0-0.06); Absolute Basophil Count 0.06 10^3/uL (0.0-0.2); Absolute Eosinophil Count 0.21 10^3/uL (0.0-0.7); Absolute Lymphocyte Count 1.51 10^3/uL (1.2-3.4); Absolute Monocyte Count 1.21 10^3/uL (0.1-0.8); Absolute Neutrophil Count 4.59 10^3/uL (1.2-6.7); Basophils % 0.8; Eosinophils % 2.8; HCT 38.7 % (36.0-46.0); Immature Grans % 0.7; Lymphocytes % 19.8; MCH 32.6 pg (27.0-33.0); MCHC 33.6 % (32.0-36.0); MPV 9.8 fL (8.0-11.0); Monocytes % 15.9; Nucleated RBC 0 %; Platelet Count 347 10^3/uL (130-400); RBC 3.99 10^6/uL (3.93-5.22); RDW 12.1 % (11.7-14.6); RDW-SD 43.2 fL; WBC 7.63 10^3/uL (4.4-10.8)
== END 2021-02-24 16:00 | disposition home or self-care (01) ==
LOC: LBN 15:59
PROVIDERS: PCP Nurse Practitioner Family; Visit Provider Physical Therapy Assistant
DX: S80.222A Blister (nonthermal), left knee, initial encounter (principal); M79.89 Other specified soft tissue disorders
CPT/HCPCS: 85025

== ENCOUNTER 2021-03-03 19:05 | Outpatient (CLI) | payer OTHER, BC, SELFPAY ==
--- NOTE | 2021-03-03 19:00 | DI.RAD_ITS ---
Exam(s) XR ELBOW LT COMPLETE EXAM: XR ELBOW LT COMPLETE CLINICAL HISTORY: left elbow pain,. TECHNIQUE: 2D digital imaging was performed of the left elbow. Three images were obtained. AP, lat eral and oblique views were obtained. COMPARISON: No exams were available for comparison FINDINGS: BONES: There does appear to be a cortical step-off of the lateral aspect of the radial head on the ob lique view. No bony destructive lesion is seen. JOINTS: The elbow is normally aligned. Joint effusion is present. SOFT TISSUE: Normal. IMPRESSION: 1. Question of a nondisplaced fracture involving the lateral aspect of the radial head. 2. Joint effusion is present. DATA REPOSITORY: RADIATION DOSE DELIVERED:
--- NOTE | 2021-03-03 19:45 | DI.VRAD_ITS ---
PROCEDURE INFORMATION: Exam: XR Left Elbow Exam date and time: 03/03/2021 7:07 PM Age: 50 years old Clinical indication: Left; Patient HX: Fall, L elbow pain TECHNIQUE: Imaging protocol: XR Left elbow. Views: 3 or more views. COMPARISON: No relevant prior studies available. FINDINGS: Bones/joints: Anterior and posterior fat pads are abnormal, suggesting presence of a joint effusion. A fracture is not specifically observed. A slight cortical step-off is noted at the lateral aspect of the radial head on the oblique view. The elbow is appropriately aligned. Soft tissues: Mild soft tissue swelling noted in the forearm. IMPRESSION: 1. Joint effusion present. 2. Subtle fracture questioned at the radial head. Dictated and Authenticated by: Gage Chávez MD. Ordering:RICARDO Whitney MD
== END 2021-03-03 19:25 ==
PROVIDERS: PCP Nurse Practitioner Family; Visit Provider Physician Assistant
DX: M25.522 Pain in left elbow (principal); M25.422 Effusion, left elbow; M79.89 Other specified soft tissue disorders; W19.XXXA Unspecified fall, initial encounter
CPT/HCPCS: 73080

== ENCOUNTER 2021-08-25 03:39 | Outpatient (CLI) | payer BC, SELFPAY ==
[2021-08-25 15:30] LABS: Abs Immature Grans 0.04 10^3/uL (0.0-0.06); Absolute Basophil Count 0.08 10^3/uL (0.0-0.2); Absolute Lymphocyte Count 1.93 10^3/uL (1.2-3.4); Absolute Monocyte Count 1.18 10^3/uL (0.1-0.8); Absolute Neutrophil Count 8.27 10^3/uL (1.2-6.7); Basophils % 0.7; Eosinophils % 0.9; HCT 39.4 % (36.0-46.0); HGB 13.1 g/dL (11.2-15.7); Immature Grans % 0.3; Lymphocytes % 16.6; MCH 32.1 pg (27.0-33.0); MCHC 33.2 % (32.0-36.0); MCV 96.6 fL (80-95); MPV 8.9 fL (8.0-11.0); Monocytes % 10.2; Neutrophils % 71.3; Nucleated RBC 0 %; Platelet Count 331 10^3/uL (130-400); RBC 4.08 10^6/uL (3.93-5.22); RDW 13.2 % (11.7-14.6); RDW-SD 47.3 fL
[2021-08-25 17:13] LABS: ALT 25 U/L (14-59); AST 20 U/L (15-37); Albumin 3.7 g/dL (3.4-5.0); Alkaline Phosphatase 62 U/L (46-116); Anion Gap 8.4 mmol/L (3-11); BUN 11 mg/dL (7-18); Bilirubin, Total 0.5 mg/dL (0.2-1.0); CO2 30.6 mmol/L (21.0-32.0); CREATININE 0.5 mg/dL (0.55-1.02); Calcium 8.9 mg/dL (8.5-10.1); Calculated LDL 116 mg/dL (<100); Chloride 96 mmol/L (98-107); Cholesterol 252 mg/dL (<200); Folate 5.4 ng/mL (8.6-20.0); Glucose 100 mg/dL (74-106); HDL Cholesterol 95 mg/dL (40-60); Magnesium 1.1 mg/dL (1.8-2.4); Potassium 3.7 mmol/L (3.5-5.1); Sodium 135 mmol/L (136-145); TSH (W/Ref FT4) 2.63 uIU/mL (0.36-3.74); Total Protein 7.1 g/dL (6.4-8.2); Triglyceride 209 mg/dL (<150); Vitamin B12 222 pg/mL (193-986)
== END 2021-08-25 03:40 | disposition home or self-care (01) ==
LOC: LBO 03:39
PROVIDERS: PCP Nurse Practitioner Family; Referring Provider Nurse Practitioner Family; Visit Provider Nurse Practitioner Family
DX: R42 Dizziness and giddiness (principal); E78.5 Hyperlipidemia, unspecified; E83.42 Hypomagnesemia; E53.8 Deficiency of other specified B group vitamins
CPT/HCPCS: 36415; 80053; 80061; 82607; 82746; 83735; 84443; 85025

== ENCOUNTER 2021-10-31 15:49 | Outpatient (REF) | payer BC, SELFPAY ==
--- NOTE | 2021-10-31 15:30 | PAPFT_PTH ---
PATIENT: Lashanda Sams LOC: [facility] U#:[id number] AGE/SX: 51/F ROOM: RE10/31/[address]: LILIBETH Perez : 1970 BED: DIS: 10/31/2021 SPEC #: [id number] RECD: 10/31/21 17:07 STATUS: VINICIUS REShannon #: [id number] MERVIN: 10/31/21 15:[address]: Jocelin Muir DEPT: [facility] Cytology RECD BY: Malaika Pierce ENTERED: 10/31/21 17:07 SP TYPE: PAPFT OTHR DR: Radha Ramirez APRN Tissues: 1 - CX/ENDOCX FOR PAP SMEARS Procedures: PAP THIN PREP/UVM Screening HPV DNA PROBE Comments: [id number]
== END 2021-10-31 15:50 | disposition home or self-care (01) ==
LOC: LBN 15:49
PROVIDERS: PCP Nurse Practitioner Family; Visit Provider Nurse Practitioner Family
DX: Z12.4 Encounter for screening for malignant neoplasm of cervix (principal); Z11.51 Encounter for screening for human papillomavirus (HPV); Z87.42 Personal history of other diseases of the female genital tract
CPT/HCPCS: 88142; 87624

== ENCOUNTER → 2021-12-11 02:02 | Outpatient (CLI) | payer BC, SELFPAY ==
--- NOTE | 2021-12-11 15:30 | DI.MAMMO_ITS ---
Exam(s) MAMMO SCREENING EXAM: MAMMO SCREENING CLINICAL HISTORY: screening. TECHNIQUE: Bilateral full field digital CC and MLO mammographic images were obtained with 3D tomosyn thesis and utilizing computer aided detection (CAD). COMPARISON: Prior mammograms were reviewed, the most recent being September 2020. FINDINGS: There has been no significant change in the appearance and distribution of fibroglandular tissue whic h is again noted be quite dense, this somewhat decreasing the sensitivity of the mammogram for findin g hidden underlying lesions. There are no new spiculated masses nor malignant appearing microcalcification groups. There is no significant architectural distortion nor skin thickening-retraction. IMPRESSION: Very dense bilateral fibroglandular tissue. Stable benign findings. No radiographic evidence of mal ignancy. BI-RADS Category 1 - Negative Breast Density - Category D - Extremely dense Breast density Category C or D implies that the patient has dense breast tissue. Dense breast tissue can make it harder to find cancer on a mammogram. Dense breast tissue is also associated with an incr eased risk of breast cancer. This information about the result of the mammogram report was provided to the patient to raise their awareness. Use this report when you speak with the patient about their risks for breast cancer, which includes their family history. At that time, you may recommend additional screening tests (Ultrasoun d or MRI) as these tests may add significant information. A negative radiographic report should not delay biopsy if a dominant or clinically suspicious mass is present. Up to ten percent of cancers are not identified on mammography. A negative report may reinforce clinical impression. Adenosis and dense breasts may obscure an underlying neoplasm. False positive reports average 6 to 10%. Patient will receive a letter notifying them of these results.
== END ==
PROVIDERS: PCP Nurse Practitioner Family; Visit Provider Nurse Practitioner Family
DX: Z12.31 Encounter for screening mammogram for malignant neoplasm of breast (principal)
CPT/HCPCS: 77063; 77067

== ENCOUNTER 2022-10-13 02:47 | Outpatient (CLI) | payer BC, SELFPAY ==
[2022-10-13 07:51] LABS: Abs Immature Grans 0.02 10^3/uL (0.0-0.06); Absolute Basophil Count 0.07 10^3/uL (0.0-0.2); Absolute Eosinophil Count 0.24 10^3/uL (0.0-0.7); Absolute Lymphocyte Count 2.66 10^3/uL (1.2-3.4); Absolute Monocyte Count 0.77 10^3/uL (0.1-0.8); Absolute Neutrophil Count 2.94 10^3/uL (1.2-6.7); Eosinophils % 3.6; HCT 43.8 % (36.0-46.0); HGB 14.9 g/dL (11.2-15.7); Immature Grans % 0.3; Lymphocytes % 39.7; MCH 32.6 pg (27.0-33.0); MCV 96 fL (80-95); MPV 9.1 fL (8.0-11.0); Monocytes % 11.5; Neutrophils % 43.9; Platelet Count 318 10^3/uL (130-400); RBC 4.57 10^6/uL (3.93-5.22); RDW 12.1 % (11.7-14.6); RDW-SD 42.6 fL
[2022-10-13 08:38] LABS: Albumin 3.5 g/dL (3.4-5.0); Alkaline Phosphatase 65 U/L (46-116); BUN 6 mg/dL (7-18); Bilirubin, Total 0.4 mg/dL (0.2-1.0); CREATININE 0.6 mg/dL (0.55-1.02); Calcium 8.8 mg/dL (8.5-10.1); Calculated LDL 148 mg/dL (<100); Cholesterol 273 mg/dL (<200); Estimated GFR 107.26 (mL/min/1.73m2); Glucose 111 mg/dL (74-106); HDL Cholesterol 94 mg/dL (40-60); Sodium 141 mmol/L (136-145); Total Protein 7.5 g/dL (6.4-8.2); Triglyceride 157 mg/dL (<150)
[2022-10-13 08:39] LABS: ALT 26 U/L (14-59); AST 25 U/L (15-37); Anion Gap 7.2 mmol/L (3-11); CO2 29.8 mmol/L (21.0-32.0); Chloride 104 mmol/L (98-107); Magnesium 1.4 mg/dL (1.8-2.4); Potassium 3.6 mmol/L (3.5-5.1); Vitamin B12 287 pg/mL (193-986)
[2022-10-13 08:56] LABS: Folate 13.9 ng/mL (8.6-20.0)
== END 2022-10-13 02:48 | disposition home or self-care (01) ==
LOC: LBO 02:47
PROVIDERS: PCP Nurse Practitioner Family; Visit Provider Nurse Practitioner Family
DX: E78.5 Hyperlipidemia, unspecified (principal); I10 Essential (primary) hypertension; E53.8 Deficiency of other specified B group vitamins; E83.42 Hypomagnesemia; D75.89 Other specified diseases of blood and blood-forming organs; Z13.1 Encounter for screening for diabetes mellitus
CPT/HCPCS: 36415; 80053; 80061; 82607; 82746; 83735; 85025

== ENCOUNTER 2023-07-16 02:32 | Outpatient (CLI) | payer BC, SELFPAY ==
[2023-07-16 12:48] LABS: Magnesium 1.3 mg/dL (1.8-2.4); TSH (W/Ref FT4) 2.19 uIU/mL (0.36-3.74); Vitamin B12 557 pg/mL (193-986)
== END 2023-07-16 02:33 | disposition home or self-care (01) ==
LOC: LOS 02:32
PROVIDERS: PCP Nurse Practitioner Family; Visit Provider Nurse Practitioner Family
DX: R53.83 Other fatigue; E83.42 Hypomagnesemia
CPT/HCPCS: 36415; 82607; 83735; 84443

== ENCOUNTER 2024-08-22 23:41 | Observation (INO) | payer BC, SELFPAY ==
[2024-08-22] VITALS (10 sets, daily range): BP systolic 109; BP diastolic 67; PULSE 74–85; RESP 16; TEMP 36.4; O2SAT 92–97
--- NOTE | 2024-08-22 23:30 | DI.RAD_ITS ---
Exam(s) XR ANKLE RT COMPLETE XR TIB/FIB RT XR FOOT RT COMPLETE EXAM: XR TIB/FIB RT CLINICAL HISTORY: fall, ankle deformity. TECHNIQUE: 2D digital imaging was performed. Two views of the tibia and fibula, three views of the ankle and foot. Portable. COMPARISON: CR,XR XR FOOT RT COMPLETE from 08/23/2024 CR,XR XR ANKLE RT COMPLETE from 08/23/2024 FINDINGS: BONES: There is a fracture extending mainly transversely through the lateral malleolus. There are so me comminuted fragments. There is a comminuted fracture through the medial malleolus as well as comm inuted fragments at the posterior malleolus. There is dislocation laterally and posteriorly of the t alus and distal fibular fracture component with respect to the distal tibia.. No additional fractures are identified in the proximal tibia and fibula or in the foot. The knee is unremarkable as visualized. SOFT TISSUE: Diffuse lower extremity edema, worse around the malleoli. IMPRESSION: Trimalleolar fracture with posterolateral tibiotalar dislocation. DATA REPOSITORY: RADIATION DOSE DELIVERED:
[2024-08-22] MEDS: ACETAMINOPHEN 1,000 MG/100 ML BAG 400 MG IVPB (23:54)
[2024-08-23] VITALS (104 sets, daily range): BP systolic 88–173; BP diastolic 52–114; PULSE 60–124; RESP 12–31; TEMP 36.2–37; O2SAT 73–99; BMI 23.6
--- NOTE | 2024-08-23 | DI.CT_ITS ---
Exam(s) CT LOWER EXTREMITY RT WO EXAM: CT LOWER EXTREMITY RT WO CLINICAL HISTORY: comminuted ankle fracture-dislocation. TECHNIQUE: Imaging Protocol: Axial computed tomography images with coronal and sagittal reformatted images were created and reviewed. CONTRAST MATERIAL: Noncontrast COMPARISON: CR,XR XR ANKLE RT 2V from 08/23/2024 FINDINGS: Bones: There is a marked comminuted try milk fracture. Multiple fragments are noted at the medial ma lleolus which shows mild displacement. The posterior malleolar fracture shows separation at the susana cular surface of 1 cm. The talus is dislocated posteriorly with respect to the main shaft and tibial plafond. Posterior malleolar fragment shows normal alignment with respect to the talus. No talar d ome defect. The lateral malleolar fracture fragment shows normal relation to the lateral aspect of t he talus however it is displaced posteriorly respect to the main fibular shaft. No cellulitic or osteomyelitic changes are identified. No lytic or sclerotic lesions are identified. Joints: There is no significant joint space narrowing. No significant periarticular spurring. Soft Tissues: Normal swelling around the ankle. IMPRESSION: Comminuted trimalleolar fracture with posterior tibiotalar dislocation. RADIATION DOSE DELIVERED: 173.21mGy.cm Total DLP DATA REPOSITORY: All CT scans at this facility are submitted to the National Radiology Data Registry (NRDR) Dose Index Registry (DIR) with the [employer] (A[employer]). RADIATION OPTIMIZATION: All CT scans at this facility use at least one of these dose optimization te chniques: automated exposure control; mA and/or kV adjustment per patient size (includes targeted exa ms where dose is matched to clinical indication); or iterative reconstruction.
[2024-08-23] MEDS: Ondansetron 4 MG/2 ML VIAL IVP ×2 (00:02→04:31)
[2024-08-23] MEDS: fentaNYL 100 MCG/2 ML VIAL 50 MCG IVP ×2 (00:02→00:20)
--- NOTE | 2024-08-23 00:26 | ED.GENADUL_ITS ---
Discharge Plan Disposition Patient Disposition: Admit to [facility] Condition: Serious Discharge Details Clinical Impression: Closed trimalleolar fracture Primary Care Provider: Radha Ramirez ED Provider: Brenda Abarca Home Meds and New Rx's Prescriptions: No Action atorvastatin [Lipitor] 40 mg tablet 40 mg PO DAILY Qty: 90 3RF fluoxetine 40 mg capsule 40 mg PO DAILY Qty: 90 3RF magnesium oxide 400 mg magnesium capsule 800 mg PO DAILY Qty: 180 3RF Rx Instructions: Administer at least 2 hours apart from other medications cyanocobalamin (vitamin B-12) 1,000 mcg tablet 1,000 mcg PO DAILY Qty: 90 3RF folic acid 1 mg tablet 1 mg PO DAILY Qty: 90 3RF pantoprazole 20 mg tablet,delayed release (DR/EC) See Rx Instructions .ROUTE .COMPLEX Qty: 90 3RF Dose Instruction: TAKE 1 TABLET BY MOUTH DAILY IN THE MORNING 30 MINUTES BEFORE FIRST MEAL ON AN EMPTY STOMACH Rx Instructions: TAKE 1 TABLET BY MOUTH DAILY IN THE MORNING 30 MINUTES BEFORE FIRST MEAL ON AN EMPTY STOMACH HPI General Mode of arrival: EMS . Date/Time Provider Initiated Documentation: 08/22/24 23:44 . Limitations to Documentation: no limitations . Information obtained by: patient and EMS . HPI Narrative: 53yo F presenting via EMS with ankle injury. Was getting up from her recliner, tangled in her blanket, and inverted her right foot while falling to the ground. No HS or LOC. Right ankle pain, otherwise denies pain or injury. Able to move right foot and toes. No numbness or tingling to RLE. Given 10mg IV morhpine from EMS prior to arrival with good effect. In her usual state of health prior to this event. Related Data Home Medications ?Medication ?Instructions ?Recorded ?Confirmed folic acid 1 mg tablet 1 mg PO DAILY #90 tabs 02/19/22 08/22/24 cyanocobalamin (vitamin B-12) 1,000 mcg PO DAILY #90 tab-caps 12/04/22 08/22/24 1,000 mcg tablet magnesium oxide 800 mg (2 x 400 mg magnesium) PO 12/04/22 08/22/24 DAILY #180 tab-caps atorvastatin 40 mg tablet (Lipitor) 40 mg PO DAILY #90 tabs 07/19/23 08/22/24 fluoxetine 40 mg capsule 40 mg PO DAILY #90 caps 07/19/23 08/22/24 pantoprazole 20 mg tablet,delayed See Rx Instructions .Route 07/24/24 08/22/24 release .COMPLEX #90 tabs Previous Rx's ?Medication ?Instructions ?Recorded folic acid 1 mg tablet 1 mg PO DAILY #90 tabs 02/19/22 cyanocobalamin (vitamin B-12) 1,000 mcg PO DAILY #90 tab-caps 12/04/22 1,000 mcg tablet magnesium oxide 800 mg (2 x 400 mg magnesium) PO 12/04/22 DAILY #180 tab-caps atorvastatin 40 mg tablet (Lipitor) 40 mg PO DAILY #90 tabs 07/19/23 fluoxetine 40 mg capsule 40 mg PO DAILY #90 caps 07/19/23 pantoprazole 20 mg tablet,delayed See Rx Instructions .Route 07/24/24 release .COMPLEX #90 tabs Allergies Allergy/AdvReac Type Severity Reaction Status Date / Time No Known Drug Allergies Allergy no Verified 08/22/24 23:45 allergies General Stated Complaint: Orthopedic TRISH: 3 Review of Systems Narrative: see HPI Exam Narrative Exam Narrative: General: Alert, well appearing, well nourished, in no acute distress. Head: Normocephalic, atraumatic Neck: Trachea midline, ?Neck supple. Cardiac: ?RRR, no murmurs appreciated Resp: No respiratory distress. CTAB. Abd: ?Soft, non-distended, nontender Extremities: ?Right ankle deformity; normal color and temperature to right foot. Skin intact. Able to move all digits, ankle, knee. Sensation intact to light touch thorughout right ankle and foot and symmetric with left. Good DP pulse. Brisk capillary refill all digits. Neurologic: GCS 15. ? Moves all extremities freely against gravity Course Vital Signs Vital signs: Vital Signs Temperature 36.4 C L 08/22/24 23:46 Pulse 85 08/22/24 23:46 Respiratory Rate 16 08/22/24 23:46 Blood Pressure 109/67 08/22/24 23:46 Pulse Oximetry 97 08/22/24 23:46 Temperature 36.4 C L 08/22/24 23:46 Temperature Source Temporal Artery Scan 08/22/24 23:46 Pulse 85 08/22/24 23:46 Respiratory Rate 16 08/22/24 23:46 Blood Pressure 109/67 08/22/24 23:46 Blood Pressure Position Sitting 08/22/24 23:46 Pulse Oximetry 97 08/22/24 23:46 Oxygen Delivery Method Room Air 08/22/24 23:46 Oxygen Flow Rate 0 08/22/24 23:46 Pain Level 7 08/22/24 23:46 Procedure Procedural Sedation Date of Procedure: 08/23/24 Provider that performed the procedure: Brenda Abarca Indication: Pain control and Procedural optimization Patient Consented: Written Standard Time Out Performed: Yes Sedation Given: Other (ketamine 105mg, propofol 300mg) Preparation: quality assurance monitor body applied, pulse oximeter, capnometry used, supplemental O2 applied, suction/airway equipment at bedside and IV secured Time of Last PO Intake: 19:00 Interventions: airway repositioned Medical Decision Making 53yo F presenting via EMS with ankle inversion injury. MFFS. -HS -LOC. Vital signs reassuring on arrival. Right ankle deformity on exam. No exam findings to suggest acute nerve or vascular injury. Not open fracture. No other traumatic findings; will get plain films RLE. IV fentanyl for pain, zofran for nausea ppx. Plain films independently reviewed; clear fracture/dislocation on my view, radiology reads pending. Discussed with orthopedics Dr. Turner with plan for bedside reduction under consciousness sedation. Bedside fracture reduction performed by Dr. Turner under consciousness sedation. Post reduction films obtained and reviewed show persist dislocation. Plan for OR this afternoon. Admission orders in place, awaiting transfer to the floor. Imaging Data Radiologic Study: Imaging: X-Ray Radiologist's impression: foot: IMPRESSION: 1. Known trimalleolar fracture dislocation at the ankle, partially redemonstrated. 2. No acute fracture seen in the foot. ankle:IMPRESSION: Acute trimalleolar fracture at the right ankle with tibiotalar dislocation, as described. tibfib:IMPRESSION: Acute trimalleolar fracture at the right ankle with tibiotalar dislocation, as described. postreduction: IMPRESSION: Postreduction views with improved lateral alignment on the frontal view but with persistent posterior dislocation of the talus relative to the tibial plafond and fibular shaft seen on the lateral view Quality:SDOH Health Related Social Needs: No Data to Display PFSH All Active Problems (Updated 08/23/24 @ 03:09 by Brenda Abarca MD) Closed trimalleolar fracture (Acute) IFG (impaired fasting glucose) (Chronic) Family history of skin cancer (Chronic) Fa, Uncle Vitamin B12 deficiency (Acute) Folate deficiency (Acute) Macrocytosis (Chronic) Folate & B12 deficiencies Alcohol use disorder (Chronic) Sudhir Grajeda 07/2009 Tobacco use disorder (Chronic 02/15/15) Hypomagnesemia (Chronic 08/26/17) Hyperlipidemia, unspecified (Chronic 03/19/15) Gastroesophageal reflux disease with esophagitis (Chronic 02/06/13) Essential hypertension (Chronic 03/19/15) Anxiety and depression (Chronic 02/15/15) Allergic rhinitis, unspecified (Chronic 11/18/17) Medical History (Updated 08/23/24 @ 03:09 by Brenda Abarca MD) Intradermal nevus of face Dermatofibroma Seborrheic keratoses Viral warts Fracture of radial head, left, closed (03/03/21) Colon polyp, hyperplastic (~05/2020) Rectal polyp Closed right fibular fracture (06/10/19) Proximal nondisplaced Distal minimally displaced Cervical high risk human papillomavirus (HPV) DNA test positive (01/26/13) Hyperesthesia (03/19/15) L anterior rib cage area Pancreatitis (~2009) Menorrhagia S/p EM ablation 2010 Surgical History SKIN GRAFTM RGT FOOT (10/12/06) Endometrial Ablation (~2010) Dr Josemanuel [facility] (11/05/12) Cervical Conization/LEEP (06/06/97) Family History Mother No problems noted. Father Essential hypertension Heart disease Social History (Updated 12/04/22 @ 13:08 by Marika Baugh RN) Smoking/Tobacco Use Status: Current every day Tobacco Type: cigarettes Smoking packs per day: 0.5 Smoking cigarettes per day: 10.0 Years smoked: 20 Smoking pack-years: 10.00 Tobacco: How many years used: 20 Quit status: considering quitting Smoking risk assessment performed?: Yes Alcohol Intake: current Alcohol Intake frequency: 0-2 drinks per day Drug use: Never Substance use type: does not use Adopted: No Caregiver/Support person: No Foster care: No Household members: spouse Housing: house Communication Needs: None and Corrective Lenses Education Level: college Details: [employer] Do you need help understanding health information?: Rarely 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 Pets and animals: Yes Pets and animals: cat(s) Sexually active: Yes Do you think of yourself as: straight/heterosexual Current gender identity: female What is your relationship status?: How often do you talk on the phone with friends or family?: three or more times per week How often do you get together with friends or relatives?: decline to answer Do you belong to any clubs or organized social groups?: no Panel score (0-1 are the most socially isolated patients): 2 What type of physical activity do you participate in: walking Duration: 15-30 minutes/day Frequency: 5-6 times per week [place]/Jain: [employer] Seatbelt use: always Helmet use: Yes Drive intox or ride w/intox driver material handler: No Water heater temp set <120 deg: Yes Working smoke detector in home: Yes Fire extinguisher in home: No Firearms in home: Yes Firearms unloaded and locked: Yes Do you feel safe at home: Yes Do you feel safe in your relationship?: Yes
--- NOTE | 2024-08-23 00:40 | NUR.NOTE ---
Nursing Note: pt medicated with pain meds before and during x-rays. pt Spo2 dropped 88%, pt placed on 4L NC
--- NOTE | 2024-08-23 02:00 | DI.RAD_ITS ---
Exam(s) XR ANKLE RT 2V EXAM: XR ANKLE RT 2V CLINICAL HISTORY: post reduction. TECHNIQUE: 2D digital imaging was performed. Two views. COMPARISON: CR,XR XR ANKLE RT COMPLETE from 08/23/2024 FINDINGS: A splint has been applied. BONES: There has been significant improvement in the alignment of the previously noted trimalleolar f racture with tibiotalar dislocation. Previously noted dislocation is improved on the AP view however there remains posterior dislocation at the at the tibiotalar joint. No bony destructive lesion is s een. SOFT TISSUE: Normal. IMPRESSION: Significant improvement of alignment of trimalleolar fracture with tibiotalar dislocation. DATA REPOSITORY: RADIATION DOSE DELIVERED:
--- NOTE | 2024-08-23 02:15 | OCONE_ITS ---
Date of service: 08/23/24 Time of Service: 01:00 History of Present Illness Narrative: Lashanda is a 53-year-old female who was getting up from her recliner when she got tangled in blankets and fell. She had immediate pain and deformity of the right foot and ankle. She was brought to the emergency department diagnosed with a right ankle fracture dislocation. I was called in consultation. She does have pain about the right ankle. She denies any previous diagnosis of osteoporosis or osteopenia. She does report some tobacco and alcohol consumption but otherwise no other risk factors for poor bone. She is otherwise active, function independent, and works. She currently reports no significant numbness or tingling except for pain about the right foot with some dysesthesias, mostly anteromedial. She did fracture this distal fibula approximately 4 years ago which healed with nonoperative treatment. Consults Consult date: 08/23/24 Requesting physician: Brenda Abarca Consult Reason Right ankle fracture dislocation Assessment and Plan Assessment and plan (1) Closed trimalleolar fracture: Status: Acute (2) Closed fracture dislocation of right ankle joint: Status: Acute Assessment and plan: Rebeca is a 53-year-old female who suffered a complex right ankle fracture dislocation with comminution all from tripping on blankets from a chair. I do worry about her bone quality. Clinically, she would have a diagnosis of osteoporosis given this scenario. I will check vitamin D levels as well as calcium levels and started on this treatment but further consideration with DEXA scan should be considered. However, today, I recommend we proceeded with closed reduction of the right ankle fracture dislocation. Procedural sedation was provided by Dr. Galen Hernández. Unfortunately, she fought the entirety of the reduction. I was able to reduce the ankle but struggled to keep it in place given her constant motion and muscle contracture. The tension on the skin was obviously corrected in the alignment. To be more anatomic but it kept sliding anterior to posterior despite me holding it with her motion on the bed. Postreduction x-rays show that unfortunate there is still some posterior subluxation. Given the highly unstable nature of this I recommended admission to the hospital for observation, pain management, strict elevation, and operative treatment. I would plan to perform operative fixation as long as the skin allows it versus close reduction and casting or external fixation. CT scan of the right ankle was performed which does confirm the trimalleolar ankle fracture with notable comminution, mostly of the posterior malleolar fragment with a very small intercalary articular segment as well as a comminuted medial malleolar fragment. I reviewed all this with Rebeca. She would like to have it fixed as much as possible. She is anxious about returning home and maintaining nonweightbearing precautions. I did discuss technical details of operative fixation of the ankle. I reviewed risk to include bleeding, infection, pain, stiffness, damage to nerves and vessels, damage to muscle and tendons, malunion, nonunion, arthritis, need for repeat procedures, hardware prominence, hardware failure, blood clot. Despite these risk, she elects to proceed. She will be n.p.o. today. Continue to work on pain management. I will give 1 g of tranexamic acid orally to help with bleeding from the fracture site. (3) Alcohol use disorder: Status: Chronic Assessment and plan: Will monitor. Diazepam for as needed pain and spasms and anxiety. Review of Systems All systems reviewed & are unremarkable except as noted in HPI and below PFSH All Active Problems (Updated 08/23/24 @ 06:22 by Yonathan Turner MD) Closed fracture dislocation of right ankle joint (Acute) Closed trimalleolar fracture (Acute) IFG (impaired fasting glucose) (Chronic) Family history of skin cancer (Chronic) Fa, Uncle Vitamin B12 deficiency (Acute) Folate deficiency (Acute) Macrocytosis (Chronic) Folate & B12 deficiencies Alcohol use disorder (Chronic) [facility] 07/2009 Tobacco use disorder (Chronic 02/15/15) Hypomagnesemia (Chronic 08/26/17) Hyperlipidemia, unspecified (Chronic 03/19/15) Gastroesophageal reflux disease with esophagitis (Chronic 02/06/13) Essential hypertension (Chronic 03/19/15) Anxiety and depression (Chronic 02/15/15) Allergic rhinitis, unspecified (Chronic 11/18/17) Medical History Intradermal nevus of face Dermatofibroma Seborrheic keratoses Viral warts Fracture of radial head, left, closed (03/03/21) Colon polyp, hyperplastic (~05/2020) Rectal polyp Closed right fibular fracture (06/10/19) Proximal nondisplaced Distal minimally displaced Cervical high risk human papillomavirus (HPV) DNA test positive (01/26/13) Hyperesthesia (03/19/15) L anterior rib cage area Pancreatitis (~2009) Menorrhagia S/p EM ablation 2010 Surgical History SKIN GRAFTM RGT FOOT (10/12/06) Endometrial Ablation (~2010) Dr Josemanuel HESS (11/05/12) Cervical Conization/LEEP (06/06/97) Family History Mother No problems noted. Father Essential hypertension Heart disease Social History Smoking/Tobacco Use Status: Current every day Tobacco Type: cigarettes Smoking packs per day: 0.5 Smoking cigarettes per day: 10.0 Years smoked: 20 Smoking pack-years: 10.00 Tobacco: How many years used: 20 Quit status: considering quitting Smoking risk assessment performed?: Yes Alcohol Intake: current Alcohol Intake frequency: 0-2 drinks per day Drug use: Never Substance use type: does not use Adopted: No Caregiver/Support person: No Foster care: No Household members: spouse Housing: house Communication Needs: None and Corrective Lenses Education Level: college Details: Associates Do you need help understanding health information?: Rarely 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 Pets and animals: Yes Pets and animals: cat(s) Sexually active: Yes Do you think of yourself as: straight/heterosexual Current gender identity: female What is your relationship status?: How often do you talk on the phone with friends or family?: three or more times per week How often do you get together with friends or relatives?: decline to answer Do you belong to any clubs or organized social groups?: no Panel score (0-1 are the most socially isolated patients): 2 What type of physical activity do you participate in: walking Duration: 15-30 minutes/day Frequency: 5-6 times per week Kaleigh/Gnosticist: Samaritan Seatbelt use: always Helmet use: Yes Drive intox or ride w/intox 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 There is a external rotation and posterior displaced deformity of the right foot. The skin is stretched and somewhat blanched over the anteromedial aspect of the ankle. There is no skin defect. There is no laceration. No pain to palpation proximally about the tibia or fibula or the knee. Palpable DP pulse. Sensation intact to light touch over the deep and superficial peroneal nerve and tibial nerve. Results Last Vital Signs Temp 36.4 C L 08/22/24 23:46 Pulse 85 08/23/24 00:41 Resp 16 08/22/24 23:46 BP 106/62 08/23/24 00:31 Pulse Ox 90 L 08/23/24 00:41 Labs 08/23/24 05:35 08/23/24 05:35 Imaging Imaging Studies: X-ray of the right foot and ankle demonstrates a trimalleolar ankle fracture dislocation. There is notable displacement and comminution of the posterior malleolar fragment as well as the medial malleolus. Identification of the fracture line is challenging given the displacement. Procedures Orthopedic Fracture Reduction Right ankle: Time out performed: Yes Side: right Fracture reduction location: tibia and fibula Analgesia: procedural sedation Technique: direct manipulation Post-reduction x-rays demonstrate: other (Postreduction x-ray showed significant improvement with the reduction in the coronal plane but unfortunately persistent posterior subluxation, with the talus now perched over the posterior edge of the tibia) Post-reduction neuro exam: intact Splint applied: Yes Patient tolerated procedure: well Additional comments: Procedural sedation was challenging as the patient continued to move and contract her muscles throughout the entirety of the examination as well as while trying to hold the splint.
[2024-08-23] MEDS: Ketamine 500 MG/10 ML VIAL 35 MG IVP ×2 (02:41→02:44)
[2024-08-23] MEDS: Propofol 200 MG/20 ML VIAL 20 MG IVP ×2 (02:41→02:45)
--- NOTE | 2024-08-23 02:45 | NUR.NOTE ---
Nursing Note: 0135 MD at bedside explaining procedure to the pt, consent signed and the pt prepared for procedural sedation, RT and Ortho at bedside per MD Abarca propofol and ketamine x3 doses of 35mg ketamine Time out: 0135 BP 138/83 HR 94 RR 14 SpO2 99% 4L NC 33 etCO2 0137 20mg prop 35mg Ket pt still awake 140/90 96% 4L NC 0140 20mg prop pt still awake 0141 35mg ket given 20mg prop pt still able to answer all questions approp 0146 20mg prop 0148 20mg prop pt tensing up muscles while MD padgett attempts to reduce ankle 0149 20mg prop 0150 35mg ket 0153 40mg prop 0155 40mg prop 0158 40mg prop 0202 40mg prop 0205 40mg prop 0207 40mg prop Total 300mg prop and 105mg ket end of the procedure at 0209 pt able to answer questions 0250 pt awake, splint adjusted to stabilize the right leg VSS 0300 IV fluids infusing POC admission
--- NOTE | 2024-08-23 03:11 | DI.VRAD_ITS ---
PROCEDURE INFORMATION: Exam: XR Right Ankle Exam date and time: 08/23/2024 12:16 AM Age: 53 years old Clinical indication: Injury or trauma; Fall; Blunt trauma; Ankle; Right; Injury date: 08/22/24 TECHNIQUE: Imaging protocol: Radiologic exam of the right ankle. Views: 3 or more views. COMPARISON: CR XR ANKLE RT COMPLETE 07/26/2019 3:03 PM FINDINGS: Bones/joints: There is a complex acute fracture/dislocation at the right ankle including a fracture through the distal fibular shaft, a fracture through the posterior aspect of the distal tibia, and a fracture through the medial malleolus. The talus appears dislocated posteriorly and laterally relative to the tibial and fibular shafts. There is an inferior calcaneal heel spur at the origin of the plantar fascia. Soft tissues: There is soft tissue swelling through the distal foreleg and overlying the lateral malleolus. IMPRESSION: Acute trimalleolar fracture at the right ankle with tibiotalar dislocation, as described. Dictated and Authenticated by: Oswald Deng MD. Orderin Tevin Gutierrez MD
--- NOTE | 2024-08-23 03:13 | DI.VRAD_ITS ---
PROCEDURE INFORMATION: Exam: XR Right Tibia and Fibula Exam date and time: 08/23/2024 12:12 AM Age: 53 years old Clinical indication: Injury or trauma; Blunt trauma; Lower leg; Right; Injury date: 08/22/24; Injury details: Fall, ankle deformity TECHNIQUE: Imaging protocol: Radiologic exam of the right tibia and fibula. Views: 2 views. COMPARISON: CR XR TIB/FIB RT 07/26/2019 3:02 PM FINDINGS: Bones/joints: Five views of the right foreleg reveal an acute trimalleolar fracture of the ankle with posterior and lateral dislocation of the talus relative to the tibial plafond and fibula. Proximal tibia and fibula appear intact. No fracture or dislocation is seen at the knee. There is an inferior calcaneal heel spur at the origin of the plantar fascia. Soft tissues: There is soft tissue swelling through the region of the ankle. IMPRESSION: Acute trimalleolar fracture at the right ankle with tibiotalar dislocation, as described. Dictated and Authenticated by: Oswald Deng MD. Orderin Tevin Gutierrez MD
--- NOTE | 2024-08-23 03:15 | DI.VRAD_ITS ---
PROCEDURE INFORMATION: Exam: XR Right Foot Exam date and time: 08/23/2024 12:30 AM Age: 53 years old Clinical indication: Injury or trauma; Blunt trauma; Foot; Right; Injury date: 08/22/24; Injury details: Fall, ankle deformity TECHNIQUE: Imaging protocol: Radiologic exam of the right foot. Views: 3 or more views. COMPARISON: CR XR FOOT RT COMPLETE 06/12/2019 6:09 PM FINDINGS: Bones/joints: Three views of the right foot are submitted. A known trimalleolar fracture dislocation is partially redemonstrated at the ankle. The talus appears grossly intact, as seen, but is partially obscured by overlying bony structures. The calcaneus appears intact. There is an inferior calcaneal heel spur at the origin of the plantar fascia. The bones of the midfoot and forefoot appear intact. Soft tissues: There is soft tissue swelling at the ankle. IMPRESSION: 1. Known trimalleolar fracture dislocation at the ankle, partially redemonstrated. 2. No acute fracture seen in the foot. Dictated and Authenticated by: Oswald Deng MD. Orderin Tevin Gutierrez MD
--- NOTE | 2024-08-23 03:18 | DI.VRAD_ITS ---
PROCEDURE INFORMATION: Exam: XR Right Ankle Exam date and time: 08/23/2024 2:25 AM Age: 53 years old Clinical indication: Injury or trauma; Fall; Other: Post reduction; Injury date: 08/22/24; Injury details: S/P closed reduction of ankle frx-dislocation TECHNIQUE: Imaging protocol: Radiologic exam of the right ankle. Views: 1 or 2 views. COMPARISON: CR XR ANKLE RT COMPLETE 08/23/2024 12:16 AM FINDINGS: Bones/joints: Two views of the right ankle were obtained through radiodense casting material. Visualization of bone detail is limited. There is redemonstration of an acute trimalleolar fracture. Lateral alignment appears significantly improved on the frontal view. The lateral view reveals persistent posterior dislocation of the talus relative to the tibial plafond and fibular shaft. Soft tissues: The soft tissues are obscured by overlying casting material. IMPRESSION: Postreduction views with improved lateral alignment on the frontal view but with persistent posterior dislocation of the talus relative to the tibial plafond and fibular shaft seen on the lateral view. Dictated and Authenticated by: Oswald Deng MD. Orderin Tevin Gutierrez MD
[2024-08-23] MEDS: oxyCODONE 5 MG TAB PO ×2 (03:21→11:09)
--- NOTE | 2024-08-23 03:24 | RESPIRATORY ---
RT paged to ED for conscious sedation. Supplies rady at head of bed included ambu-bag, oral airway, NRB, OxyMask, suction, EtCO2 nasal cannula. Pre Vitals: HR 90 RR 18 SpO2 98 EtCO2 36 BP 138/83 Vitals During: HR 86 RR 16 SpO2 96 EtCO2 44 BP 117/69 Post Vitals: HR 85 RR 18 SpO2 98 EtCO2 40 BP 102/66 Pt tolerated sedation and procedure well. No breaths were needed with ambu-bag. Suction not needed. Pt maintained airway well through duration.
[2024-08-23] MEDS: HYDROmorphone 2 MG/ML SYR 0.5 MG IVP ×4 (04:19→11:09)
[2024-08-23] MEDS: Lactated Ringers 1,000 ML 75 ML IV (04:19)
[2024-08-23] MEDS: Ketorolac 15 MG/ML VIAL IVP ×3 (04:34→21:28)
[2024-08-23] MEDS: diazePAM 5 MG TAB PO ×2 (05:17→08:05)
[2024-08-23] MEDS: Tranexamic Acid 650 MG TAB 1300 MG PO (05:21)
--- NOTE | 2024-08-23 06:54 | DI.VRAD_ITS ---
PROCEDURE INFORMATION: Exam: CT Right Lower Extremity Without Contrast, Ankle Exam date and time: 08/23/2024 3:20 AM Age: 53 years old Clinical indication: Injury or trauma; Fall; Blunt trauma; Right; Injury date: 08/23/24; Injury details: Comminuted ankle fx/ dislocation TECHNIQUE: Imaging protocol: CT of the right lower extremity without contrast was performed. Exam focused on the ankle. Radiation optimization: All CT scans at this facility use at least one of these dose optimization techniques: automated exposure control; mA and/or kV adjustment per patient size (includes targeted exams where dose is matched to clinical indication); or iterative reconstruction. COMPARISON: CR XR ANKLE RT 2V 08/23/2024 2:25 AM FINDINGS: Bones/joints: There is a comminuted trimalleolar fracture. There is anterior displacement of the tibia with respect to the talus with approximately 1.3 cm distraction of the fracture fragments. Scattered bone islands noted. Soft tissues: Soft tissue swelling about the ankle. IMPRESSION: Comminuted trimalleolar fracture. Dictated and Authenticated by: Edyta Galvez MD. Orderin Johnny Mcmanus MD
[2024-08-23 07:11] LABS: HCT 37.5 % (36.0-46.0); HGB 12.6 g/dL (11.2-15.7); MCH 33.4 pg (27.0-33.0); MCHC 33.6 % (32.0-36.0); MCV 100 fL (80-95); Platelet Count 287 10^3/uL (130-400); RBC 3.77 10^6/uL (3.93-5.22); RDW-SD 47.6 fL; WBC 12.71 10^3/uL (4.4-10.8)
[2024-08-23 07:24] LABS: Lab Add On Test DONE
[2024-08-23 07:33] LABS: ALT 26 U/L (14-59); AST 46 U/L (15-37); Albumin 3.2 g/dL (3.4-5.0); Alkaline Phosphatase 58 U/L (46-116); Anion Gap 12.7 mmol/L (3-11); BUN 4 mg/dL (7-18); Bilirubin, Total 0.4 mg/dL (0.2-1.0); CO2 25.3 mmol/L (21.0-32.0); CREATININE 0.5 mg/dL (0.55-1.02); Calcium 8.2 mg/dL (8.5-10.1); Chloride 103 mmol/L (98-107); Estimated GFR 111.39 (mL/min/1.73m2); Glucose 128 mg/dL (74-106); Potassium 3.6 mmol/L (3.5-5.1); Sodium 141 mmol/L (136-145); Total Protein 6.8 g/dL (6.4-8.2)
[2024-08-23 07:55] LABS: Vitamin D 25 Total 52 ng/mL (30-100)
[2024-08-23] MEDS: FLUoxetine 20 MG CAP 40 MG PO (08:09)
--- NOTE | 2024-08-23 11:14 | ANES.PREOP_ITS ---
General Info Date of Service Date Performed: 08/23/24 Height: 5 ft 9 in Weight: 72.575 kg Body Mass Index (BMI): 23.6 Surgical Procedure: Operation Date: 08/23/24 16:55 Proposed Procedure Side Surgeon prince Turner MD Meds Allergies and Home Medications Allergies Allergy/AdvReac Type Severity Reaction Status Date / Time No Known Drug Allergies Allergy no Verified 08/22/24 23:45 allergies Home Medication ?Medication ?Instructions ?Recorded folic acid 1 mg tablet 1 mg PO DAILY #90 tabs 02/19/22 cyanocobalamin (vitamin B-12) 1,000 mcg PO DAILY #90 tab-caps 12/04/22 1,000 mcg tablet magnesium oxide 800 mg (2 x 400 mg magnesium) PO 12/04/22 DAILY #180 tab-caps atorvastatin 40 mg tablet (Lipitor) 40 mg PO DAILY #90 tabs 07/19/23 fluoxetine 40 mg capsule 40 mg PO DAILY #90 caps 07/19/23 pantoprazole 20 mg tablet,delayed See Rx Instructions .Route 07/24/24 release .COMPLEX #90 tabs Current Visit Medications: Current Medications Generic Name Dose Route Start Last Admin Trade Name Freq PRN Reason Stop Dose Admin Atorvastatin Calcium 40 mg 08/23/24 20:00 Atorvastatin 40 Mg Tab PO QPM CALDERON Cyanocobalamin 1,000 mcg 08/23/24 08:30 08/23/24 08:10 Cyanocobalamin 500 Mcg Tab PO Not Given DAILY CALDERON Diazepam 5 mg 08/23/24 05:05 08/23/24 08:05 Diazepam 5 Mg Tab PO 5 mg TID PRN PRN Administration Fluoxetine HCl 40 mg 08/23/24 08:30 08/23/24 08:09 Fluoxetine 20 Mg Cap PO 40 mg DAILY CALDERON Administration Folic Acid 1 mg 08/23/24 08:30 08/23/24 08:11 Folic Acid 1 Mg Tab PO Not Given DAILY CALDERON Hydromorphone HCl 0.5 mg 08/23/24 09:46 08/23/24 11:09 Hydromorphone 2 Mg/Ml Syr IVP 0.5 mg Q1H PRN PRN Administration Ringer's Solution 1,000 mls @ 75 mls/hr 08/23/24 03:00 08/23/24 04:19 IV 75 mls/hr INFUSION CALDERON Administration Ketorolac Tromethamine 15 mg 08/23/24 12:00 Ketorolac 15 Mg/Ml Vial IVP 08/28/24 02:59 Q8H CALDERON Magnesium Oxide 800 mg 08/23/24 08:30 08/23/24 08:11 Magnesium Oxide 400 Mg Tab PO Not Given DAILY CALDERON Ondansetron HCl 4 mg 08/23/24 09:42 Ondansetron 4 Mg/2 Ml Vial IVP Q4H PRN PRN Oxycodone HCl 5 - 10 mg 08/23/24 05:07 08/23/24 11:09 Oxycodone 5 Mg Tab PO 10 mg Q4H PRN PRN Administration Sodium Chloride 0 ml 08/23/24 11:08 Normal Saline Flush 10 Ml Syr IVP PRN PRN PFSH Active Problems Active Problems: Problem Status Onset Code Closed fracture dislocation of right ankle joint Acute S82.891A Closed trimalleolar fracture Acute S82.853A IFG (impaired fasting glucose) Chronic R73.01 Family history of skin cancer Chronic Z80.8 Vitamin B12 deficiency Acute E53.8 Folate deficiency Acute E53.8 Macrocytosis Chronic D75.89 Alcohol use disorder Chronic Tobacco use disorder Chronic 02/15/15 F17.200 Hypomagnesemia Chronic 08/26/17 E83.42 Hyperlipidemia, unspecified Chronic 03/19/15 E78.5 Gastroesophageal reflux disease with esophagitis Chronic 02/06/13 K21.0 Essential hypertension Chronic 03/19/15 I10 Anxiety and depression Chronic 02/15/15 F41.9, F32.9 Allergic rhinitis, unspecified Chronic 11/18/17 J30.9 Medical History Medical History Intradermal nevus of face Dermatofibroma Seborrheic keratoses Viral warts Fracture of radial head, left, closed (03/03/21) Colon polyp, hyperplastic (~05/2020) Rectal polyp Closed right fibular fracture (06/10/19) Proximal nondisplaced Distal minimally displaced Cervical high risk human papillomavirus (HPV) DNA test positive (01/26/13) Hyperesthesia (03/19/15) L anterior rib cage area Pancreatitis (~2009) Menorrhagia S/p EM ablation 2010 Surgical History Surgical History SKIN GRAFTM RGT FOOT (10/12/06) Endometrial Ablation (~2010) Dr Josemanuel HESS (11/05/12) Cervical Conization/LEEP (06/06/97) Tobacco Smoking/Tobacco Use Status: Current every day Tobacco Type: cigarettes Smoking packs per day: 0.5 Smoking cigarettes per day: 10.0 Years smoked: 20 Smoking pack-years: 10.00 Alcohol Alcohol Intake: current Alcohol intake frequency: 0-2 drinks per day Substance Use Substance use: Never Substance use type: does not use Vital Signs and Lab Results Vital Signs Most Recent Vital Signs in EMR: Most Recent Vital Signs Temp Pulse Resp BP Pulse Ox 36.3 C L 89 18 134/91 H 91 L 08/23/24 07:29 08/23/24 07:29 08/23/24 07:29 08/23/24 07:29 08/23/24 07:29 Lab Results 08/23/24 07:00 08/23/24 07:00 Blood Type / Crossmatch: 2 No Data to Display Complete Blood Count: 2 White Blood Count 12.71 10^3/uL (4.4-10.8) H 08/23/24 07:00 Red Blood Count 3.77 10^6/uL (3.93-5.22) L 08/23/24 07:00 Hemoglobin 12.6 g/dL (11.2-15.7) 08/23/24 07:00 Hematocrit 37.5 % (36.0-46.0) 08/23/24 07:00 Platelet Count 287 10^3/uL (130-400) 08/23/24 07:00 Complete Metabolic Panel: 2 Sodium 141 mmol/L (136-145) 08/23/24 07:00 Potassium 3.6 mmol/L (3.5-5.1) 08/23/24 07:00 Chloride 103 mmol/L (98-107) 08/23/24 07:00 Carbon Dioxide 25.3 mmol/L (21.0-32.0) 08/23/24 07:00 BUN 4 mg/dL (7-18) L 08/23/24 07:00 Creatinine 0.5 mg/dL (0.55-1.02) L 08/23/24 07:00 Est GFR (CKD-EPI 2020) 111.39 (mL/min/1.73m2) 08/23/24 07:00 Calcium 8.2 mg/dL (8.5-10.1) L 08/23/24 07:00 Albumin 3.2 g/dL (3.4-5.0) L 08/23/24 07:00 Glucose 128 mg/dL (74-106) H 08/23/24 07:00 Liver Function Panel: 2 Alanine Aminotransferase (ALT/SGPT) 26 U/L (14-59) 08/23/24 07: 00 Aspartate Amino Transf (AST/SGOT) 46 U/L (15-37) H 08/23/24 07: 00 Coagulation Panel: 2 No Data to Display Cardiac Panel: 2 No Data to Display Arterial Blood Gas: 2 No Data to Display Venous Blood Gas: 2 No Data to Display Pancreas Panel: 2 No Data to Display Thyroid Panel: 2 No Data to Display Infectious Disease: 2 No Data to Display Blood Cultures: 2 No Data to Display Toxicology Panel: 2 No Data to Display Panel: 2 No Data to Display Anesthesia Assessment and Plan Anesthesia History Personal History: No History of Anesthesia Complications Family History: No Family History of Anesthesia Complications Exercise Tolerance Exercise Tolerance: Metabolic Equivalents>4 Pertinent Negatives Pertinent Negatives: No Major Cardiovascular Symptoms or Complaints and No Major Pulmonary Symptoms or Complaints Cardiac & Pulmonary Exam Cardiac Exam: Normal S1/S2 Heart Sounds Pulmonary Exam: Clear Bilateral Breath Sounds Implantable Cardiac Device Does patient have a Pacemaker or an ICD?: No Airway Exam Known Difficult Airway: No Mallampati Class: 2 Mouth Opening: Normal (> 3cm) Thyromental Distance: Greater than 3 cm Neck Range of Motion: Full ROM Neck Circumference: Normal Teeth Condition: Generalized Poor Dentition ASA Classification ASA Score: ASA 2 Emergency Case?: No NPO Status NPO Status: NPO Clears >2 hours, Solids >8 hours Status Status: Not Per Patient Anesthesia Plan Resuscitation Status: Full Code Anesthesia Technique: General Anesthesia Airway Planned: Endotracheal Tube Pain Management: Surgeon and patient request nerve block Monitors Used: Standard Monitors Preoperative Comments:: Plan for preoperative nerve block at Dr. Turner's request. Planned popliteal nerve block/adductor with Exparel. Patient has significant history of smoking and alcohol consumption, discussed pulmonary concerns secondary to smoking.
--- NOTE | 2024-08-23 13:07 | W.ANESNERVE ---
Nerve Block Single Injection Procedure Date and Time Date Performed: 08/23/24 Procedure Start: 12:34 Location Where Procedure Performed Procedure Location: Med/Surg (on telemetry) Reason Performed: Acute Pain Management Pain Diagnosis: Ankle Pain Requesting Provider: Yonathan Turner Timeout Performed Timeout Performed: Yes Monitoring Used ECG, Blood Pressure and SpO2 Sterility Sterility: Hand Hygiene, Surgical Cap, Surgical Mask, Sterile Gloves and Chlorhexidine Sedation Given During Procedure Sedation Given (Indicate Dose Given): No Sedation given Patient Mental Status Patient Mental Status: Awake Nerve Block 1st Nerve Block: Laterality: Right Block Type: Popliteal Sciatic Ultrasound Image Saved?: Yes Needle / Catheter Used: 80mm SonoPlex II Local Anesthetic Bolus (Indicate Dose Given): Lidocaine used for local infiltration of skin, Injected in 3-5ml increments after negative blood aspiration and Bupivacaine 0.375% Dose:: 20mL Additives (Indicate Dose Given): None Ultrasound: Sterile probe cover and gel used Nerve Stimulator: Supplement to Ultrasound use and No twitch or parasthesia noted < 0.5 mA Paresthesia: None Procedure Tolerated: No Complications Procedure Outcome: Successful Performed By: Tessa Li 2nd Nerve Block: Laterality: Right Block Type: Adductor Canal Ultrasound Image Saved?: Yes Needle / Catheter Used: 80mm SonoPlex II Local Anesthetic Bolus (Indicate Dose Given): Lidocaine used for local infiltration of skin, Injected in 3-5ml increments after negative blood aspiration, Bupivacaine 0.375% Dose:: 10mL and Exparel Dose:: 10mL Additives (Indicate Dose Given): None Ultrasound: Sterile probe cover and gel used Nerve Stimulator: Supplement to Ultrasound use and No twitch or parasthesia noted < 0.5 mA Paresthesia: None Procedure Tolerated: No Complications Procedure Outcome: Successful Performed By: Tessa Li
--- NOTE | 2024-08-23 14:00 | DI.RAD_ITS ---
Exam(s) XR ANKLE RT 2V EXAM: XR ANKLE RT 2V INDICATION: right ankle fracture dislocation. COMPARISON: CR,XR XR ANKLE RT 2V from 08/23/2024 TECHNIQUE: 2D digital imaging was performed. Two views. FINDINGS: A splint remains in place. There has been no change in the alignment of the trimalleolar fracture wh ich shows satisfactory alignment on the AP view but posterior dislocation of the talus on the lateral view. DATA REPOSITORY: RADIATION DOSE DELIVERED:
--- NOTE | 2024-08-23 15:00 | DI.RAD_ITS ---
Exam(s) XR ANKLE RT 2V EXAM: XR ANKLE RT 2V CLINICAL HISTORY: RIGHT ANKLE FRACTURE TECHNIQUE: 2D and realtime digital imaging was performed. CONTRAST MATERIAL: Refer to procedure report. COMPARISON: CR XR ANKLE RT 2V from 08/23/2024 FINDINGS: Fluoroscopy was provided for Dr. Turner during the performance of a reduction and internal fixatio n of the right ankle fracture dislocation. Please refer to the procedure report for complete details . Ka,r=1.21 mGy IMPRESSION: RADIATION DOSE DELIVERED: 0.0 0.0 0
[2024-08-23] MEDS: Lactated Ringers 1,000 ML 30 ML IV ×2 (16:27→21:53)
[2024-08-23] MEDS: Bupivacaine 0.5% Pres-Free W/EPI 30 ML VIAL (17:19)
--- NOTE | 2024-08-23 18:23 | PDOC.CMIN ---
Date of service: 08/23/24 Time of Service: 18:24 Care Management Initial Assmt Initial Assessment Reason for Hospitalization: R ankle fracture-dislocation Functional Status/Living Situation Patient Presentation: Lashanda was in the OR when CM attempted to meet with her. Her , Baljinder, was in the room, and discussed Lashanda's plan of care with CM. 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 She is independent at baseline in the community. Baljinder stated that per MD, she will likely be ready to discharge later this evening, after surgery. He stated that they have a flight of stairs to get into the house, but then they live all on one level. He expressed some concern about getting her into the house/up the stairs. CM suggested a lift assist from the fire department or EMS; he stated that his brother lives next door and will likely be able to help him get her into the house. Baljinder stated that they are looking into getting a knee scooter to help her with mobility while she is non weight bearing after surgery. CM will continue to follow. Town of Residence: [facility] Resides with: Spouse Significant Other/Family: Local Employment Status: Employed Instrumental Activities of Daily Living (ADLs): Independent Medications Medication Management: No Issues/Barriers identified Physical Functioning/Mobility Assistive Device: none Advance Directives Advance Directives: Do you have an Advance Directive: N 02/24/21 10:54 AD On File at [facility]: N 02/24/21 10:54 Date Asked 08/23/24 08/23/24 13:26 AD Date Reviewed COLST On File at [facility] No 09/26/22 14:13 COLST Date Scanned Code Status Resuscitation Status Full Code Insurance Coverage/Financial Issues Insurance: / Care Team Visit Care Team Role Provider Type Radha Ramirez NP Primary Care Provider NURSE PRACTITIONER Brenda Abarca MD Emergency Provider [facility] STAFF PHYSICIAN Yonathan Turner MD Admit Provider [facility] STAFF PHYSICIAN Attending Provider Discharge Potential Discharge Needs: Surgical F/U Appt Anticipated Barriers to Discharge: None Identified Patient/Family Education Needs: Review discharge instructions, discuss Ask Me Three Transportation: Private vehicle Plan: Anticipate Lashanda will return home once medically cleared. Her will drive her home via private vehicle. She will follow up with Ortho and her discharge plan of care. CM will continue to follow. Social Determinants of Health Screening Social Determinants of Health last assessed: 08/23/24 Will the Patient Participate in the Screening?: Yes Do you worry about having a steady place to live?: no Problems where you live: no known problems In the past 12 months, have you had to go without electric, gas, oil or water in your home?: no Have you or anyone in your house had to go without enough food to eat?: no Has lack of transportation kept you from medical appointments or from doing things needed for daily living?: no Has anyone in your life made you feel unsafe or unsupported?: no How hard is it for you to pay for the very basics like food, housing, medical care, and heating? Would you say it is:: Somewhat hard Do you want help finding or keeping work or a job?: I do not need or want help If for any reason you need help with day-to-day activities such as bathing, preparing meals, shopping, managing finances, etc., do you get the help you need?: I don?t need any help How often do you feel lonely or isolated from those around you?: Sometimes Do you speak a language other than Uzbek at home?: No Health Related Social Needs Health related social needs: problems related to housing/economic circumstances (Z59.89) and feeling lonely/isolated (Z60.8) PFSH All Active Problems (Updated 08/23/24 @ 06:22 by Yonathan Turnre MD) Closed fracture dislocation of right ankle joint (Acute) Closed trimalleolar fracture (Acute) IFG (impaired fasting glucose) (Chronic) Family history of skin cancer (Chronic) Fa, Uncle Vitamin B12 deficiency (Acute) Folate deficiency (Acute) Macrocytosis (Chronic) Folate & B12 deficiencies Alcohol use disorder (Chronic) [facility] 07/2009 Tobacco use disorder (Chronic 02/15/15) Hypomagnesemia (Chronic 08/26/17) Hyperlipidemia, unspecified (Chronic 03/19/15) Gastroesophageal reflux disease with esophagitis (Chronic 02/06/13) Essential hypertension (Chronic 03/19/15) Anxiety and depression (Chronic 02/15/15) Allergic rhinitis, unspecified (Chronic 11/18/17) Medical History Intradermal nevus of face Dermatofibroma Seborrheic keratoses Viral warts Fracture of radial head, left, closed (03/03/21) Colon polyp, hyperplastic (~05/2020) Rectal polyp Closed right fibular fracture (06/10/19) Proximal nondisplaced Distal minimally displaced Cervical high risk human papillomavirus (HPV) DNA test positive (01/26/13) Hyperesthesia (03/19/15) L anterior rib cage area Pancreatitis (~2009) Menorrhagia S/p EM ablation 2010 Surgical History SKIN GRAFTM RGT FOOT (10/12/06) Endometrial Ablation (~2010) Dr Josemanuel HESS (11/05/12) Cervical Conization/LEEP (06/06/97) Family History Mother No problems noted. Father Essential hypertension Heart disease Social History Smoking/Tobacco Use Status: Current every day Tobacco Type: cigarettes Smoking packs per day: 0.5 Smoking cigarettes per day: 10.0 Years smoked: 20 Smoking pack-years: 10.00 Tobacco: How many years used: 20 Quit status: considering quitting Smoking risk assessment performed?: Yes Alcohol Intake: current Alcohol Intake frequency: 0-2 drinks per day Drug use: Never Substance use type: does not use Adopted: No Caregiver/Support person: No Foster care: No Household members: spouse Housing: house Communication Needs: None and Corrective Lenses Education Level: college Details: Associates Do you need help understanding health information?: Rarely 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 Pets and animals: Yes Pets and animals: cat(s) Sexually active: Yes Do you think of yourself as: straight/heterosexual Current gender identity: female What is your relationship status?: How often do you talk on the phone with friends or family?: three or more times per week How often do you get together with friends or relatives?: decline to answer Do you belong to any clubs or organized social groups?: no Panel score (0-1 are the most socially isolated patients): 2 What type of physical activity do you participate in: walking Duration: 15-30 minutes/day Frequency: 5-6 times per week Kaleigh/Scientology: Shinto Seatbelt use: always Helmet use: Yes Drive intox or ride w/intox delivery truck driver: No Water heater temp set <120 deg: Yes Working smoke detector in home: Yes Fire extinguisher in home: No Firearms in home: Yes Firearms unloaded and locked: Yes Do you feel safe at home: Yes Do you feel safe in your relationship?: Yes
--- NOTE | 2024-08-23 19:36 | W.PM.OP ---
Operative Note Operative Note PRE-OP DIAGNOSIS: Right Trimalleolar Ankle Fracture Dislocation POST-OP DIAGNOSIS: same PROCEDURE: Open Reduction and Internal Fixation of Right Trimalleolar Ankle Fracture-Dislocation SURGEON: Yonathan Turner [employer] POLICE: Jose Rodriguez ANESTHESIA TYPE: General:No Airway and Spinal Refer to Anesthesia Record ESTIMATED BLOOD LOSS: 200 TOURNIQUET TIME: 50 COMPLICATIONS: Other (Unexpected bleeding was encountered against the posterior tibia. This was isolated and cauterized and doppler signal checked to confirm no major vessel injury.) Indications: Lashanda is a 53-year-old female who suffered a right ankle fracture dislocation. Given the nature of the injury I recommended proceed with operative fixation. I discussed technical details of the surgery. I reviewed the risk to include bleeding, infection, pain, stiffness, damage nerves and vessels, damage to muscle tendons, malunion, nonunion, hardware prominence, hardware failure, need for repeat procedures. Despite his risk, she elected to proceed. Findings: There is significant comminution of the fractures about the fibula and the distal tibia. The bone was quite poor. There is very little integrity to the cancellous bone and there was comminution at the fracture edges where the distal aspect of bone was very soft. The fibula was reduced with a single lag screw to help hold positioning. The distal tibial component was fixated with a posterior tibial plate. During the preparation of the posterior tibia for reduction and plate placement there is some vigorous bleeding which was encountered. A tourniquet was then utilized to identify vascular injury. There seem to be a transversing vessel over the distal tibia. It was cauterized. Doppler was utilized to ensure there is no vascular injury to the primary vascular network of the foot which was intact. The tourniquet was released and there was no bleeding and the foot was warm well-perfused. Procedure Description: Lashanda was greeted in the preoperative holding area. Her identity was confirmed the correct site was identified and marked. The consent was reviewed the patient and signed. Previously a adductor canal and popliteal block was performed on the floor. She was then taken back to the operating room where spinal anesthetic was administered. She was then transferred into the prone position making sure that all bony problems were well-padded, breast are free from direct pressure, and knees are well-padded. The operative side, right leg, was placed onto a prone bone foam ramp. A tourniquet was placed high up onto the right thigh. The right leg was then prepped with ChloraPrep and draped in standard fashion utilizing a bone foam positioning ramp for the prone position of the operative extremity. The proposed surgical site was marked on the skin just off the posterior border of the fibula. Tibia-fibula extending proximal 12 cm. a timeout performed for safe surgery. This proposed surgical site was anesthetized with quarter percent bupivacaine. The skin was then incised sharply. Dissection was carried down through the skin. Blunt dissection was carried through the skin and simultaneous tissues to the posterior border of the fibula. The fracture of the fibula disease identifiable. A saunders elevator was utilized to elevate the periosteum off of the lateral fibula around the fracture for better fracture notification. There is notable displacement of the fracture. There is some comminution. Reduction of the ankle and manipulation of fracture fragments showed the fracture to be a primary short oblique fracture with comminution. The bone in this area is quite soft and was spongy and cracking even with gentle retractor placement as well as manipulation of the fracture fragments. I elevated the peroneal tendons with the intention of placing a posterior antiglide plate. The fracture was reduced and held with a clamp and a single lag screw was placed across the fracture for provisional fixation. This did have some fixation but was limited with notable soft bone that struggled even to hold the screw. Nevertheless, has provided some stability and I proceeded for fixation of the posterior tibia next. Dissection was then carried over the posterior border of the peroneal tendons and the posterior fascia was elevated off the posterior fibula. Retraction of the flexor hallucis longus exposed the posterior aspect of the tibia and the fracture. Once again there is some comminution seen at the level of the apex of the fracture fragment. With direct pressure of the posterior malleolar fracture fragment I was able to reduce the fracture as seen on the x-ray and the lateral positioning. I then measured and cut a 2.7 mm pyramid type plate to use as a buttress plate over the posterior tibia. I had a saunders elevator to elevate soft tissues of the posterior tibia. During this elevation, while keeping the saunders elevator on bone there was brisk pulsatile bleeding encountered. I was unable to see this location and therefore the tourniquet was then inflated. After had exposure of the serum tibia I then deflated the tourniquet., However, at this point there actually was no bleeding noticed. There was a vascular structure,'s relatively small in caliber, traversing horizontally across the posterior tibia. The tourniquet was down and there was no significant bleeding from this area. I then utilized a Doppler where biphasic flow was appreciated at the dorsalis pedis and posterior tibial artery locations. I then continued with the preparation posterior tibia. This 2.7mm pyramid type plate was placed and compression was utilized to ensure the plate was down to bone and in appropriate location, confirmed with x-ray. Placed a single screw in the shaft of the plate to reduce it down to the tibia. This seemed to adequately reduce the fracture fragment. To further close down the intra-articular split I then placed a nonlocking screw in the distal tibia just above the joint line. This was placed and tightened and showed adequate compression of the joint. Second screw was placed in a similar fashion. I then placed 2 additional screws proximally total plate in position. Attention was then turned back to the fibula. Posterior border the fibula was identified. A one third tubular plate was utilized and contoured for the back of the fibula to serve as an antiglide type plate. With this in position I then placed 3 cortical screws proximal to the fracture to hold the plate in position against the posterior fibula. I then placed 2 locking screws distally to the fracture. Fluoroscopy was then utilized to identify that the fracture was nearly anatomically reduced. Stress views were obtained which showed no gapping of the medial malleolar fragment with no gapping of the syndesmosis. Therefore, I chose not to fix the medial malleolus at this point and chose to have no syndesmotic fixation. Final x-rays were obtained. The deep tissues were then injected with additional 0.25% bupivacaine. The wounds were thoroughly irrigated. The fascia of the peroneal musculature was reapproximated with 0 Vicryl. The deep tissues were reapproximated with 2-0 and 3-0 Vicryl. The skin was closed with 3-0 nylon. The wound was dressed with Xeroform, 4 x 4 gauze, ABD pads and Webril. A short leg splint was applied. At the end the case all counts were correct. She was awakened from her sedation and transferred over the hospital bed without any injury noted to her skin from the prone positioning or any untoward events. The foot was warm and well-perfused. Date of Procedure: 08/23/24
[2024-08-23] MEDS: Atorvastatin 40 MG TAB PO (21:27)
[2024-08-23] MEDS: Normal Saline Flush 10 ML SYR IVP (21:28)
[2024-08-23] MEDS: ceFAZolin 1 GM/50 ML BAG IVPB (21:29)
[2024-08-24 02:20] VITALS: BP 145/79; PULSE 62; RESP 18; TEMP 36; O2SAT 99
[2024-08-24] MEDS: Ketorolac 15 MG/ML VIAL IVP ×2 (03:30→12:48)
[2024-08-24] MEDS: ceFAZolin 1 GM/50 ML BAG IVPB ×2 (04:34→14:20)
[2024-08-24 07:57] VITALS: BP 137/86; PULSE 79; RESP 15; TEMP 36.2; O2SAT 98
--- NOTE | 2024-08-24 09:23 | W.ANESPOSTOP ---
Postoperative Evaluation Date, Time and Location Date Performed: 08/24/24 Time Performed: 08:44 Patient Location: Med/Surg Vital Signs Most Recent Imported Vital Signs: Most Recent Vital Signs Temp Pulse Resp BP Pulse Ox 36.2 C L 79 15 137/86 98 08/24/24 07:57 08/24/24 07:57 08/24/24 07:57 08/24/24 07:57 08/24/24 07:57 Pain Score Most Recent Pain Score: Most Recent Pain Score Pain Level 2 08/23/24 21:28 Assessment Mental Status: Awake (Alert & Oriented to Patient Baseline) Airway and Respiratory Function: Patent airway with normal (patient baseline) respiratory exam Cardiovascular Function: Hemodynamically Stable Hydration Status: Adequately Hydrated Nausea & Vomiting: No Nausea or Vomiting Pain: Pain is tolerable per patient Peripheral Nerve Block: Regional nerve block not resolved at time of post operative discharge
[2024-08-24] MEDS: Magnesium Oxide 400 MG TAB 800 MG PO (09:45)
[2024-08-24] MEDS: Folic Acid 1 MG TAB PO (09:45)
[2024-08-24] MEDS: FLUoxetine 20 MG CAP 40 MG PO (09:46)
[2024-08-24] MEDS: Cyanocobalamin 500 MCG TAB 1000 MCG PO (09:46)
[2024-08-24] MEDS: oxyCODONE 5 MG TAB PO (09:57)
--- NOTE | 2024-08-24 13:15 | DI.RAD_ITS ---
Exam(s) XR CHEST 2V PA LATERAL EXAM: XR CHEST 2V PA LATERAL CLINICAL HISTORY: Persistent hypoxia TECHNIQUE: 2D digital imaging was performed. Two views. COMPARISON: CR LEFT RIBS TO INCLUDE CXR from 02/21/2015 FINDINGS: HEART: Normal size. Aorta: Not dilated. PULMONARY VASCULATURE: Normal. MEDIASTINUM: Unremarkable. LUNGS: The left diaphragm is mildly elevated. The lungs are suboptimally inflated. Linear densities at the left lung base likely represent atelectasis. Pneumonia not entirely excluded. Clinical jeff elation recommended. PLEURAL SPACE: No pleural effusion or pneumothorax. BONE:Unremarkable for age. SOFT TISSUES: Unremarkable. IMPRESSION: Atelectasis versus infiltrate at the left lung base. DATA REPOSITORY: RADIATION DOSE DELIVERED:
--- NOTE | 2024-08-24 13:44 | W.MEDCONSULT ---
Date of service: 08/24/24 Time of Service: 13:44 Assessment and Plan Assessment and plan (1) Essential hypertension: Status: Chronic Assessment and plan: Recommend optimization in the outpatient setting (2) Tobacco use disorder: Status: Chronic Assessment and plan: He did have a longer than 10-minute discussion with the patient in regards to tobacco cessation strategies. The patients are in a contemplative versus active step in trying to quit tobacco (3) Hypoxia: Status: Acute Assessment and plan: The exact etiology is unknown although my suspicion is that she has got some atelectasis and I have started on incentive spirometer and Acapella. Wean oxygen as necessary and needed. As mentioned above the vitamin a small component of respiratory depression with narcotic use although her use was completely appropriate. I will add that the patient does have an elevated white count of 12.71 but this is most likely a stress reaction from her recent surgery. I am going to place an order for a CBC CMP B12 folate and iron for completeness as well as affect patient with mildly elevated MCV History of Present Illness History of Present Illness Chief Complaint: Hypoxia requiring oxygen Narrative: This is a 53-year-old female who we are asked to see by Dr. Turner of the orthopedic service. Patient had recent right foot surgery and postoperatively has had a continued oxygen requirement. Upon discussion with the patient she denies any pulmonary history but states she does smoke approximately 3 packs of cigarettes a week and this has been going on for over 20 years. Patient currently denies any fevers chills nausea vomiting. Patient is otherwise without complaint. Of note, the patient did get some opiate pain medication which could decrease her respiratory drive to some degree. Review of Systems Narrative: 14 point review of systems is otherwise negative PFSH All Active Problems (Updated 08/24/24 @ 13:48 by Pablo Silva MD) Hypoxia (Acute) Closed fracture dislocation of right ankle joint (Acute) Closed trimalleolar fracture (Acute) IFG (impaired fasting glucose) (Chronic) Family history of skin cancer (Chronic) Fa, Uncle Vitamin B12 deficiency (Acute) Folate deficiency (Acute) Macrocytosis (Chronic) Folate & B12 deficiencies Alcohol use disorder (Chronic) [facility] 07/2009 Tobacco use disorder (Chronic 02/15/15) Hypomagnesemia (Chronic 08/26/17) Hyperlipidemia, unspecified (Chronic 03/19/15) Gastroesophageal reflux disease with esophagitis (Chronic 02/06/13) Essential hypertension (Chronic 03/19/15) Anxiety and depression (Chronic 02/15/15) Allergic rhinitis, unspecified (Chronic 11/18/17) Medical History Intradermal nevus of face Dermatofibroma Seborrheic keratoses Viral warts Fracture of radial head, left, closed (03/03/21) Colon polyp, hyperplastic (~05/2020) Rectal polyp Closed right fibular fracture (06/10/19) Proximal nondisplaced Distal minimally displaced Cervical high risk human papillomavirus (HPV) DNA test positive (01/26/13) Hyperesthesia (03/19/15) L anterior rib cage area Pancreatitis (~2009) Menorrhagia S/p EM ablation 2010 Surgical History SKIN GRAFTM RGT FOOT (10/12/06) Endometrial Ablation (~2010) Dr Josemanuel HESS (11/05/12) Cervical Conization/LEEP (06/06/97) Family History Mother No problems noted. Father Essential hypertension Heart disease Social History Smoking/Tobacco Use Status: Current every day Tobacco Type: cigarettes Smoking packs per day: 0.5 Smoking cigarettes per day: 10.0 Years smoked: 20 Smoking pack-years: 10.00 Tobacco: How many years used: 20 Quit status: considering quitting Smoking risk assessment performed?: Yes Alcohol Intake: current Alcohol Intake frequency: 0-2 drinks per day Drug use: Never Substance use type: does not use Adopted: No Caregiver/Support person: No Foster care: No Household members: spouse Housing: house Communication Needs: None and Corrective Lenses Education Level: college Details: Associates Do you need help understanding health information?: Rarely 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 Pets and animals: Yes Pets and animals: cat(s) Sexually active: Yes Do you think of yourself as: straight/heterosexual Current gender identity: female What is your relationship status?: How often do you talk on the phone with friends or family?: three or more times per week How often do you get together with friends or relatives?: decline to answer Do you belong to any clubs or organized social groups?: no Panel score (0-1 are the most socially isolated patients): 2 What type of physical activity do you participate in: walking Duration: 15-30 minutes/day Frequency: 5-6 times per week Kaleigh/Taoist: Cheondoism Seatbelt use: always Helmet use: Yes Drive intox or ride w/intox electric lift truck driver: No Water heater temp set <120 deg: Yes Working smoke detector in home: Yes Fire extinguisher in home: No Firearms in home: Yes Firearms unloaded and locked: Yes Do you feel safe at home: Yes Do you feel safe in your relationship?: Yes Exam Narrative Exam Narrative: HEENT: Normocephalic atraumatic mucous membranes moist oropharynx is clear neck: No lymphadenopathy no JVD no thyromegaly Cardiovascular: Regular rate and rhythm no murmurs gallops Pulmonary: Clear to auscultation bilaterally with good air exchange no accessory muscle use is noted speaking in complete sentences Abdomen: Soft nontender nondistended bowel sounds active Extremities: Right lower extremity in blue left lower extremity with dorsalis pedis posterior tibularis intact Psych: Alert and oriented x 3 no apparent distress can give a linear history Results Last Vital Signs Temp 36.2 C L 08/24/24 07:57 Pulse 79 08/24/24 07:57 Resp 15 08/24/24 07:57 BP 137/86 08/24/24 07:57 Pulse Ox 98 08/24/24 07:57 Labs 08/23/24 07:00 08/23/24 07:00
--- NOTE | 2024-08-24 14:16 | CHAPLAIN ---
Lashanda was resting in bed when I visited. She said she may be discharged later today. She's here for an ankle fracture. Her spend the night with her here last night. 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 I explained my role and offered support.
--- NOTE | 2024-08-24 14:28 | PT.INIE ---
PT Notes Visit Reasons: Right Ankle Fracture-Dislocation Physical Therapy Inpatient Initial Evaluation Date: 08/24/2024 Referring Doctor: Dr. Turner PT Orders: PT CONSULT: Status post Ortho surgery Precautions: TTWB right lower extremity Patient Profile/Admitting Diagnosis: Patient is 53-year-old female presented to the ED status post fall while getting up from couch. Her feet were wrapped in a blanket. Patient is not onset of right ankle pain. X-rays revealed trimalleolar fracture. Patient is admitted on 08/23/2024 and underwent ORIF. Patient seen postop day 1. Anticipate patient discharged home after PT evaluation. Ortho MD recommended patient to utilize knee walker if crutches become too difficult. PMHX: [] Social History/Home Situation: Patient resides in duplex with her 13 steps to enter with 1 rail. Patient independent ADLs, ambulation, meal prep, shopping, driving. 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 Patient has been is able to provide assistance as needed. Equipment Owned/DME: Patient has ordered a knee walker/scooter Subjective: Patient reports her ankle feels much better after surgery. She is concerned about stairs to enter the home. Her reports he and his [id number] will be present to assist her into the home and have been educated on use of fire department for lift assist to enter if patient has difficulty. Objective: [] General Observation: Female upright in bed with right lower extremity elevated postop casting in place IV access right upper extremity. Has been visiting Mental Status: Alert and oriented x 4, cooperative, motivated, eager to return home, able to follow all instructions agreeable to participate in evaluation Pain: Denied pain ROM: [] Right Upper Extremity: WNL Left Upper Extremity: WNL Right Lower Extremity: hip knee WNL ankle not tested d/t cast in place Left Lower Extremity:WNL Strength: [] BUE: 5/5 Right Lower Extremity: Hip and knee greater than equal to 3/5 no resistance applied status post surgery ankle not tested due to cast Left Lower Extremity: 5/5 Sensation: Intact Bed Mobility/Transfers: [] Supine to sit independent Sit to stand supervision Stand to sit supervision Bed to chair supervision with axillary crutches Gait: CGA 25 feet with bilateral axillary crutches maintaining nonweightbearing . Patient preferred nonweightbearing versus toe-touch weightbearing due to fear she would put too much pressure on her foot. Stairs: 5 steps with 2 rails CGA maintaining nonweightbearing; 5 steps with 1 rail and crutch min assist Balance: [] Static Sitting: Normal Dynamic Sitting: Normal Static Standing: Fair plus Dynamic Standing: Fair with axillary crutches Special Tests: [] Mobility Limitations Standardized Measure [] [facility] AM-PAC 6 clicks Basic Mobility Inpatient Short Form: [] Raw Score: 19 CMS Score: 41.77% Informed Consent/Education: Patient instructed in purpose of PT consult. Treatment [id number] caregiver training for stairs and ambulation with axillary crutches has been able to provide min assist on stairs and contact-guard assist for ambulation. Has been demonstrates ability to provide proper cueing to ensure patient maintains nonweightbearing during stairs. Assessment: Patient presents with clinical signs and symptoms consistent with current/admitting diagnoses that have resulted to mobility limitations, gait instability, generalized weakness, and impairment of motor control as demonstrated by the following impairment level findings: 1. Decreased strength to right ankle major muscle groups 2. Impaired standing balance 3. Limitation of joint range of motion in right ankle 4. Impaired standing functional activity tolerance. Impairments are contributing to the following functional limitations: 1. Inability to safely ambulate without assistive device 2. Increase completion time for mobility ADL performance 3. Increased fall risk 4. Difficulty performing stairs without assistance and assistive device. Patient is assessed as a moderate complexity based on the following: History: 53-year-old female with impairment level findings, functional limitations, and past medical history as indicated above Examination: Demonstrable impairment in strength, balance, and mobility level with underlying impairments and functional limitations as documented above Presentation: evolving Decision Making: moderate Goals: N/A. Plan of Care/Treatment Plan: PT evaluation and 1 treatment session only for functional mobility training using recommended AD and for HEP instruction. DISCHARGE RECOMMENDATIONS: Home with no services. Ortho MD to refer to outpatient PT as appropriate TREATMENT CODE/TIME:[id number] Thank you for the opportunity to participate in the care of this patient. Keke Sheth PT [facility]
--- NOTE | 2024-08-24 14:50 | DSE_ITS ---
Date of service: 08/24/24 Time of Service: 12:15 DS: Diagnosis Discharge Diagnosis (1) Essential hypertension: Status: Chronic (2) Tobacco use disorder: Status: Chronic (3) Hypoxia: Status: Acute Discharge Plan Disposition Patient Disposition: Home Condition: Stable Discharge Details Reason For Visit: Right Ankle Fracture-Dislocation Admit Date/Time: 08/23/24 02:50 Admit Provider: Yonathan Turner Attending Provider: Yonathan Turner Primary Care Provider: Radha Ramirez Hospital Course Hospital Course: Patient was admitted to the medical/surgical floor from the emergency department after suffering a fracture dislocation of the right ankle. She was then taken to the operating room for operative fixation on hospital day #2. The surgery was tolerated well without any notable medical, surgical, or anesthetic co mplications. Mobilization began postoperatively. She was voiding spontaneously. Vitals were stable. Physical therapy worked with the patient and was cleared for discharge home. No acute medical issues. Pain was controlled on oral regimen. She also had persistent low oxygen readings even from the emergency department into the hospital. She was evaluated with a chest x-ray and with hospitalist consult. There was may be some early atelectasis and hyperinflated lung shepherd which could be related to her smoking. However, she had no active signs of pneumonia or other infectious process. Home Meds and New Rx's Prescriptions: New acetaminophen 500 mg tablet 1,000 mg PO Q8H PRN (Reason: pain) Qty: 90 3RF celecoxib 200 mg capsule 200 mg PO BID PRN (Reason: pain) Qty: 60 1RF oxycodone 5 mg tablet 5 mg PO Q6H PRN (Reason: pain) Qty: 12 0RF Continued atorvastatin [Lipitor] 40 mg tablet 40 mg PO DAILY Qty: 90 3RF fluoxetine 40 mg capsule 40 mg PO DAILY Qty: 90 3RF magnesium oxide 400 mg magnesium capsule 800 mg PO DAILY Qty: 180 3RF Rx Instructions: Administer at least 2 hours apart from other medications cyanocobalamin (vitamin B-12) 1,000 mcg tablet 1,000 mcg PO DAILY Qty: 90 3RF folic acid 1 mg tablet 1 mg PO DAILY Qty: 90 3RF pantoprazole 20 mg tablet,delayed release (DR/EC) See Rx Instructions .ROUTE .COMPLEX Qty: 90 3RF Dose Instruction: TAKE 1 TABLET BY MOUTH DAILY IN THE MORNING 30 MINUTES BEFORE FIRST MEAL ON AN EMPTY STOMACH Rx Instructions: TAKE 1 TABLET BY MOUTH DAILY IN THE MORNING 30 MINUTES BEFORE FIRST MEAL ON AN EMPTY STOMACH Discharge Instructions Additional Instructions: Ankle ORIF Discharge Instructions Activity: You are NON WEIGHT BEARING. You should keep the leg elevated as much as possible. You may wiggle your toes and move your hip and knee. You will require crutches for mobilization. These were fitted for you. Dressings: You should keep your splint clean and dry. Do NOT get wet or dirty. If you have issues with your splint, please call the office at [phone] or the hospital after hours. Medications: - You should take Tylenol and Celebrex around the clock for baseline pain. - You have been prescribed a stronger narcotic for breakthrough pain. - You should take a Baby Aspirin (81mg) twice a day for blood clot prevention. Follow-up: 2 weeks Referrals: Yonathan Turner MD [ [facility]FF [facility]YSICIAN] - Activity:: NWB RLE Equipment/Supplies:: Crutches Diet:: As Tolerated Discharge Orders Discharge Orders: Discharge Order (Routine); Ordered 08/24/24 Ordered By: Yonathan Turner DS: Summary Time Spent with Patient providing and/or coordinating discharge services: Less than 30 minutes Status at Discharge Functional status at discharge: uses cane/walker Overall status at discharge: patient is progressing back to baseline Mental Status: mental status grossly normal Speech and Movement: speech and movement normal Mood: congruent mood Affect: normal affect Quality:SDOH Health Related Social Needs: Health related social needs problems related to housin g/economic circumstances (Z59.89), feeling lonely/isolated (Z60.8) Exam Narrative Exam Narrative: Resting in the bed. No acute distress. Alert and orient x 3. Right lower extremity splint is clean dry and intact. Toes are warm and well- perfused with cap refill about 3 seconds. Sensation tact light touch over the deep and superficial peroneal nerve and tibial nerve. Psych Mental Status: mental status grossly normal Speech and Movement: speech and movement normal Mood: congruent mood Affect: normal affect DS: Data Vitals/I&O Vitals and I&O: Vital Signs Temperature 36.2 C L 08/24/24 07:57 Temperature Source Temporal Artery Scan 08/24/24 07:57 Pulse 79 08/24/24 07:57 Pulse Rhythm Regular 08/23/24 04:38 Respiratory Rate 15 08/24/24 07:57 Respiratory Effort Normal, Non-Labored 08/23/24 04:38 Respiratory Depth Normal 08/23/24 04:38 Respiratory Pattern Normal 08/23/24 04:38 Blood Pressure 137/86 08/24/24 07:57 Blood Pressure Position Sitting 08/22/24 23:46 Pulse Oximetry 98 08/24/24 07:57 Respiratory End-tidal CO2 43 08/23/24 02:31 Oxygen Delivery Method Nasal Cannula 08/24/24 07:57 Oxygen Flow Rate 2 08/24/24 07:57 Pain Level 4 08/24/24 12:48 Comment Done by LEOPOLDO on Med/Surg 08/23/24 17:17 Intake & Output 08/23/24 08/24/24 08/24/24 23:59 11:59 23:59 Intake Total 823.0 / 923.0 223.0 / 223.0 Output Total 400 / 400 550 / 950 400 / 950 Balance 423.0 / 523.0 -327.0 / -727.0 -400 / -727.0 Intake: IV 823.0 / 923.0 223.0 / 223.0 Output: Urine 300 / 300 550 / 950 400 / 950 Estimated Blood Loss 100 / 100 Other: Urine Color Yellow Yellow Yellow Urine Appearance Clear Comment no urge to void yet. Stool Characteristics Soft Formed PFSH All Active Problems Hypoxia (Acute) Closed fracture dislocation of right ankle joint (Acute) Closed trimalleolar fracture (Acute) IFG (impaired fasting glucose) (Chronic) Family history of skin cancer (Chronic) Fa, Uncle Vitamin B12 deficiency (Acute) Folate deficiency (Acute) Macrocytosis (Chronic) Folate & B12 deficiencies Alcohol use disorder (Chronic) [facility] 07/2009 Tobacco use disorder (Chronic 02/15/15) Hypomagnesemia (Chronic 08/26/17) Hyperlipidemia, unspecified (Chronic 03/19/15) Gastroesophageal reflux disease with esophagitis (Chronic 02/06/13) Essential hypertension (Chronic 03/19/15) Anxiety and depression (Chronic 02/15/15) Allergic rhinitis, unspecified (Chronic 11/18/17) Medical History Intradermal nevus of face Dermatofibroma Seborrheic keratoses Viral warts Fracture of radial head, left, closed (03/03/21) Colon polyp, hyperplastic (~05/2020) Rectal polyp Closed right fibular fracture (06/10/19) Proximal nondisplaced Distal minimally displaced Cervical high risk human papillomavirus (HPV) DNA test positive (01/26/13) Hyperesthesia (03/19/15) L anterior rib cage area Pancreatitis (~2009) Menorrhagia S/p EM ablation 2010 Surgical History SKIN GRAFTM RGT FOOT (10/12/06) Endometrial Ablation (~2010) Dr Josemanuel HESS (11/05/12) Cervical Conization/LEEP (06/06/97) Family History Mother No problems noted. Father Essential hypertension Heart disease Social History Smoking/Tobacco Use Status: Current every day Tobacco Type: cigarettes Smoking packs per day: 0.5 Smoking cigarettes per day: 10.0 Years smoked: 20 Smoking pack-years: 10.00 Tobacco: How many years used: 20 Quit status: considering quitting Smoking risk assessment performed?: Yes Alcohol Intake: current Alcohol Intake frequency: 0-2 drinks per day Drug use: Never Substance use type: does not use Adopted: No Caregiver/Support person: No Foster care: No Household members: spouse Housing: house Communication Needs: None and Corrective Lenses Education Level: college Details: Associates Do you need help understanding health information?: Rarely 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 Pets and animals: Yes Pets and animals: cat(s) Sexually active: Yes Do you think of yourself as: straight/heterosexual Current gender identity: female What is your relationship status?: How often do you talk on the phone with friends or family?: three or more times per week How often do you get together with friends or relatives?: decline to answer Do you belong to any clubs or organized social groups?: no Panel score (0-1 are the most socially isolated patients): 2 What type of physical activity do you participate in: walking Duration: 15-30 minutes/day Frequency: 5-6 times per week Kaleigh/Pentecostal: Catholic Seatbelt use: always Helmet use: Yes Drive intox or ride w/intox hearse driver: No Water heater temp set <120 deg: Yes Working smoke detector in home: Yes Fire extinguisher in home: No Firearms in home: Yes Firearms unloaded and locked: Yes Do you feel safe at home: Yes Do you feel safe in your relationship?: Yes Time Spent with Patient Time Spent with Patient: <45 minutes Time was spent: preparing to see the patient(eg.review tests), referring, communicating with other health intensive care anaesthetist and counseling the patient
--- NOTE | 2024-08-24 15:05 | CMDISCH_ITS ---
Date of service: 08/24/24 Time of Service: 15:06 LACE Index Scoring Tool Questions: Length of Stay (in days): 1 Was the patient admitted via the E.D.?: Yes E.D. Visits: 1 Answers: Total Score: 5 Risk of Readmission: Low Risk Care Management Discharge Plan Reason for Hospitalization: Right ankle dislocation Discharge Plan: Lashanda is discharged home via private vehicle with family. Will follow up with community providers and her discharge plan of care as directed. No services are indicated at the time of discharge. Patient/Family Education Needs: Review discharge instructions, limitations and plan to follow up after discharge. Discuss ask me three. SDOH Health Related Social Needs: Health related social needs problems related to housin g/economic circumstances (Z59.89), feeling lonely/isolated (Z60.8)
[2024-08-24 15:41] VITALS: BP 150/81; PULSE 71; RESP 15; TEMP 36.6; O2SAT 98
[2024-08-24 16:46] VITALS: O2SAT 92
== END 2024-08-24 17:38 | disposition home or self-care (01) ==
LOC: ER 08-23 04:10 → MS 08-23 06:59
PROVIDERS: Admitting Provider Student in an Organized Health Care Education/Training Program; Emergency Provider Student in an Organized Health Care Education/Training Program; PCP Nurse Practitioner Family; Visit Provider Student in an Organized Health Care Education/Training Program
PROC: (CPT 27823; principal; 2024-08-23 16:45)
DX: S82.851A Displaced trimalleolar fracture of right lower leg, initial encounter for closed fracture (principal); R09.02 Hypoxemia; G89.18 Other acute postprocedural pain; M25.571 Pain in right ankle and joints of right foot; F17.210 Nicotine dependence, cigarettes, uncomplicated; S93.314A Dislocation of tarsal joint of right foot, initial encounter; W01.0XXA Fall on same level from slipping, tripping and stumbling without subsequent striking against object, initial encounter; F10.90 Alcohol use, unspecified, uncomplicated; M81.0 Age-related osteoporosis without current pathological fracture; R73.01 Impaired fasting glucose; E53.8 Deficiency of other specified B group vitamins; I10 Essential (primary) hypertension; E83.42 Hypomagnesemia; E78.5 Hyperlipidemia, unspecified; F41.8 Other specified anxiety disorders; K21.00 Gastro-esophageal reflux disease with esophagitis, without bleeding
CPT/HCPCS: 27823; 00123; 27818; 36415; 64447; 64450; 76000; 80053; 82306; 85027; 96365; 96366; 96375; 96376; 97116; 97162; 97530; 99156; 99285; 71046; 73590; 73600; 73610; 73630; 73700; 99222; G0378; J0131; J0665; J0666; J0690; J1100; J1171; J1885; J2003; J2250; J2405; J2704; J3010

== ENCOUNTER 2024-09-07 15:35 | Outpatient (CLI) | payer BC, SELFPAY ==
--- NOTE | 2024-09-07 14:00 | DI.RAD_ITS ---
Exam(s) XR ANKLE RT COMPLETE EXAM: XR ANKLE RT COMPLETE CLINICAL HISTORY: 1ST POST OP S/P ORIF R ANKLE. TECHNIQUE: 2D digital imaging was performed. Three images were obtained. AP, lateral and oblique vi ews were obtained. COMPARISON: XA XR ANKLE RT 2V from 08/23/2024 CR XR ANKLE RT 2V from 08/23/2024 CR,XR XR ANKLE RT COMPLETE from 08/23/2024 FINDINGS: BONES: There are stable post operative changes of internal fixation of the distal tibial and fibular fractures present. There has been no change in alignment of the fracture components or the orthopedi c hardware compared to the intraoperative films. No new fracture or dislocation. JOINTS: The joint spaces are well maintained. SOFT TISSUE: Normal. IMPRESSION: Stable postoperative changes. DATA REPOSITORY: RADIATION DOSE DELIVERED:
== END 2024-09-07 15:36 | disposition home or self-care (01) ==
LOC: DIORS 15:35
PROVIDERS: PCP Nurse Practitioner Family; Visit Provider Student in an Organized Health Care Education/Training Program
DX: S82.891D Other fracture of right lower leg, subsequent encounter for closed fracture with routine healing (principal); X58.XXXD Exposure to other specified factors, subsequent encounter
CPT/HCPCS: 73610

== ENCOUNTER 2024-10-05 15:22 | Outpatient (CLI) | payer BC, SELFPAY ==
--- NOTE | 2024-10-05 15:24 | DI.RAD_ITS ---
Exam(s) XR ANKLE RT COMPLETE EXAM: XR ANKLE RT COMPLETE CLINICAL HISTORY: S/P ORIF R ANKLE. TECHNIQUE: 2D digital imaging was performed. Three views. COMPARISON: XA XR ANKLE RT 2V from 08/23/2024 CR XR ANKLE RT 2V from 08/23/2024 CR XR ANKLE RT COMPLETE from 09/07/2024 FINDINGS: BONES: Stable position of hardware in the distal tibia and fibula. Continued healing of the medial m alleolar fracture. No bony destructive lesion is seen. JOINTS: The ankle mortise is normally aligned. SOFT TISSUE: Normal. IMPRESSION: Continued fracture healing. DATA REPOSITORY: RADIATION DOSE DELIVERED:
== END 2024-10-05 15:23 | disposition home or self-care (01) ==
LOC: DIORS 15:22
PROVIDERS: PCP Nurse Practitioner Family; Referring Provider Nurse Practitioner Family; Visit Provider Physician Assistant
DX: S82.891A Other fracture of right lower leg, initial encounter for closed fracture (principal)
CPT/HCPCS: 73610

== ENCOUNTER 2024-11-09 15:21 | Outpatient (CLI) | payer BC, SELFPAY ==
--- NOTE | 2024-11-09 15:00 | DI.RAD_ITS ---
Exam(s) XR ANKLE RT COMPLETE EXAM: XR ANKLE RT COMPLETE CLINICAL HISTORY: eval R ankle frx ORIF. TECHNIQUE: 2D digital imaging was performed. COMPARISON: CR XR ANKLE RT COMPLETE from 09/07/2024 CR XR ANKLE RT COMPLETE from 10/05/2024 FINDINGS: 3 views Again noted are the fixation plates along the distal aspects the distal fibula and tibia, appearing s table. There is no widening the ankle mortise. There is a healing fracture of the medial malleolus again noted. There is no hardware across this fracture. No evidence of hardware loosening nor radiographic evidence of osteomyelitis. Moderate size inferior calcaneal spur is again noted. IMPRESSION: As above DATA REPOSITORY: RADIATION DOSE DELIVERED:
== END 2024-11-09 15:22 | disposition home or self-care (01) ==
LOC: DIORS 15:21
PROVIDERS: PCP Nurse Practitioner Family; Referring Provider Nurse Practitioner Family; Visit Provider Student in an Organized Health Care Education/Training Program
DX: S82.891A Other fracture of right lower leg, initial encounter for closed fracture (principal)
CPT/HCPCS: 73610

== ENCOUNTER 2025-01-17 04:18 | Outpatient (CLI) | payer BC, SELFPAY ==
[2025-01-17 13:04] LABS: Abs Immature Grans 0.03 10^3/uL (0.0-0.06); HCT 43.3 % (36.0-46.0); HGB 14.7 g/dL (11.2-15.7); Immature Grans % 0.3 %; MCH 33.3 pg (27.0-33.0); MCHC 33.9 % (32.0-36.0); MCV 98 fL (80-95); MPV 9.0 fL (8.0-11.0); Platelet Count 397 10^3/uL (130-400); RBC 4.42 10^6/uL (3.93-5.22); RDW 13.2 % (11.7-14.6); RDW-SD 47.1 fL; WBC 8.71 10^3/uL (4.4-10.8)
[2025-01-17 13:14] LABS: Glucose Negative (Negative)
[2025-01-17 13:20] LABS: Hemoglobin A1C 5.3 % (<5.7)
[2025-01-17 13:54] LABS: ALT 36 U/L (14-59); AST 35 U/L (15-37); Albumin 3.2 g/dL (3.4-5.0); Alkaline Phosphatase 77 U/L (46-116); Anion Gap 7.7 mmol/L (3-11); BUN 2 mg/dL (7-18); Bilirubin, Total 0.5 mg/dL (0.2-1.0); CO2 29.3 mmol/L (21.0-32.0); Calcium 8.9 mg/dL (8.5-10.1); Calculated LDL 156 mg/dL (<100); Chloride 101 mmol/L (98-107); Cholesterol 267 mg/dL (<200); Estimated GFR 110.70 (mL/min/1.73m2); Glucose 92 mg/dL (74-106); HDL Cholesterol 75 mg/dL (>or=50); Potassium 3.5 mmol/L (3.5-5.1); Sodium 138 mmol/L (136-145); TSH 1.70 uIU/mL (0.36-3.74); Total Protein 7.0 g/dL (6.4-8.2); Triglyceride 182 mg/dL (<150)
== END 2025-01-17 04:19 | disposition home or self-care (01) ==
LOC: LBO 04:18
PROVIDERS: PCP Nurse Practitioner Family; Visit Provider Family Medicine
DX: Z13.9 Encounter for screening, unspecified (principal); R53.83 Other fatigue
CPT/HCPCS: 36415; 80053; 80061; 81003; 83036; 84443; 85025